=== PATIENT | male | born 1950 | race Caucasian/White ===

== ENCOUNTER 2018-01-31 11:15 | Emergency (ER) | payer BC ==
[2018-01-31 12:20] LABS: KETONE, URINE AUTO RFX TRACE mg/dL (NEGATIVE); LEUKOCYTE ESTERASE UR AUTO RFX NEGATIVE (NEGATIVE); MUCUS, URINE RFX SMALL (NEGATIVE); NITRITE, URINE AUTO RFX NEGATIVE (NEGATIVE); RBC, URINE AUTO RFX 38 /HPF (0-3); SPECIFIC GRAVITY UR AUTO RFX 1.014 (1.002-1.035); SQUAM EPITHELIAL CELL UR AURFX 0 /HPF (0-6); WBC, URINE AUTO RFX 1 /HPF (0-3)
[2018-01-31] MEDS: NS 1,000 ML IV (12:30)
[2018-01-31] MEDS: TAMSULOSIN 0.4 MG CAP PO (12:59)
[2018-01-31] MEDS: MORPHINE 4 MG/ML 1ML VIAL/SYRINGE (J2270) IV (12:59)
[2018-01-31 13:17] LABS: BASO % 0.1 % (0.0-1.0); EOS % 0.2 % (0.0-3.0); HEMATOCRIT 42.5 % (42.0-52.0); HEMOGLOBIN 14.7 g/dl (13.5-17.5); IMMATURE GRANULOCYTE % 0.2 % (0-3.0); LYMPH # 1.3 10^3/uL (1.5-4.5); LYMPH % 13.1 % (24.0-44.0); MEAN CORPUSCULAR HEMOGLOBIN 33.9 pg (27.0-33.0); MEAN CORPUSCULAR HGB CONC 34.6 g/dl (32.0-36.5); MEAN CORPUSCULAR VOLUME 97.9 fl (80.0-96.0); MONO # 0.7 10^3/uL (0.0-0.8); MONO % 7.2 % (0.0-5.0); NEUTROPHILS # 7.8 10^3/uL (1.8-7.7); NEUTROPHILS % 79.2 % (36.0-66.0); PLATELET COUNT, AUTOMATED 144 10^3/uL (150-450); RED BLOOD COUNT 4.34 10^6/uL (4.30-6.10); RED CELL DISTRIBUTION WIDTH 12.6 % (11.5-14.5); WHITE BLOOD COUNT 9.9 10^3/uL (4.0-10.0)
[2018-01-31 13:54] LABS: ALBUMIN 4.2 GM/DL (3.2-5.2); ALBUMIN/GLOBULIN RATIO 1.27 (1.00-1.93); ALKALINE PHOSPHATASE 76 U/L (45-117); ALT/SGPT 25 U/L (12-78); ANION GAP 8 MEQ/L (8-16); AST/SGOT 20 U/L (7-37); BLOOD UREA NITROGEN 17 MG/DL (7-18); CALCIUM LEVEL 8.9 MG/DL (8.8-10.2); CARBON DIOXIDE LEVEL 26 MEQ/L (21-32); CHLORIDE LEVEL 107 MEQ/L (98-107); CREATININE FOR GFR 1.37 MG/DL (0.70-1.30); GLOMERULAR FILTRATION RATE 55.5 (>49); GLUCOSE, FASTING 96 MG/DL (70-100); LIPASE 62 U/L (73-393); POTASSIUM SERUM 4.3 MEQ/L (3.5-5.1); SODIUM LEVEL 141 MEQ/L (136-145); TOTAL PROTEIN 7.5 GM/DL (6.4-8.2)
[2018-01-31] MEDS ORDERED: ISOVUE-370 76% 100ML VIAL (Q9967) As Ordered (14:15)
[2018-01-31] MEDS: KETOROLAC 30 MG/ML VIAL (J1885) IV (14:46)
== END 2018-01-31 15:55 | disposition home or self-care (01) ==
LOC: M ED 11:15
DX: N28.89 Other specified disorders of kidney and ureter (principal); M54.89 Other dorsalgia; F17.200 Nicotine dependence, unspecified, uncomplicated
CPT/HCPCS: J2270

== ENCOUNTER → 2018-01-31 | Outpatient (REF) | payer BC | LOC: M SFHCLERA 10:15 | DX: R10.9 Unspecified abdominal pain (principal); Z53.8 Procedure and treatment not carried out for other reasons ==

== ENCOUNTER → 2018-01-31 | Outpatient (CLI) | payer BC | LOC: M LRY 10:03 | DX: R10.9 Unspecified abdominal pain (principal); K63.89 Other specified diseases of intestine | CPT/HCPCS: 81002 ==

== ENCOUNTER → 2018-02-06 | Outpatient (REF) | payer BC ==
[2018-02-06 14:28] LABS: AMORPHOUS SEDIMENT SMALL (NEGATIVE); APPEARANCE, URINE CLEAR (CLEAR); BACTERIA, URINE AUTO NEGATIVE (NEGATIVE); BILIRUBIN, URINE AUTO NEGATIVE (NEGATIVE); BLOOD, URINE BLOOD 1+ (NEGATIVE); COLOR, URINE YELLOW (YELLOW); GLUCOSE, URINE (UA) AUTO NEGATIVE (NEGATIVE); KETONE, URINE AUTO NEGATIVE (NEGATIVE); LEUKOCYTE ESTERASE, URINE AUTO NEGATIVE (NEGATIVE); MUCUS, URINE SMALL (NEGATIVE); NITRITE, URINE AUTO NEGATIVE (NEGATIVE); PROTEIN, URINE AUTO NEGATIVE (NEGATIVE); RBC, URINE AUTO 5 /HPF (0-3); SQUAMOUS EPITHELIAL CELL UR AU 0 /HPF (0-6); UROBILINOGEN, URINE AUTO 0.2 mg/dL (0.0-2.0); WBC, URINE AUTO 1 /HPF (0-3)
== END ==
LOC: M SMT 13:38
DX: R31.29 Other microscopic hematuria (principal)
CPT/HCPCS: 81001

== ENCOUNTER → 2018-02-26 | Outpatient (CLI) | payer BC ==
[2018-02-26 10:16] LABS: HEMATOCRIT 40.4 % (42.0-52.0); HEMOGLOBIN 14.1 g/dl (13.5-17.5); MEAN CORPUSCULAR HEMOGLOBIN 33.6 pg (27.0-33.0); MEAN CORPUSCULAR HGB CONC 34.9 g/dl (32.0-36.5); MEAN CORPUSCULAR VOLUME 96.2 fl (80.0-96.0); PLATELET COUNT, AUTOMATED 143 10^3/uL (150-450); RED CELL DISTRIBUTION WIDTH 12.1 % (11.5-14.5); WHITE BLOOD COUNT 5.8 10^3/uL (4.0-10.0)
[2018-02-26 10:44] LABS: INR 1.09; PROTHROMBIN TIME 14.2 SECONDS (12.1-14.4)
[2018-02-26 10:45] LABS: PARTIAL THROMBOPLASTIN TIME 27.2 SECONDS (25.4-37.6)
[2018-02-26 10:47] LABS: ANION GAP 6 MEQ/L (8-16); BLOOD UREA NITROGEN 14 MG/DL (7-18); CALCIUM LEVEL 8.7 MG/DL (8.8-10.2); CARBON DIOXIDE LEVEL 28 MEQ/L (21-32); CHLORIDE LEVEL 109 MEQ/L (98-107); CREATININE FOR GFR 0.78 MG/DL (0.70-1.30); GLOMERULAR FILTRATION RATE > 60.0 (>49); GLUCOSE, FASTING 79 MG/DL (70-100); POTASSIUM SERUM 4.2 MEQ/L (3.5-5.1); SODIUM LEVEL 143 MEQ/L (136-145)
== END ==
LOC: M LAB 09:16
DX: N13.30 Unspecified hydronephrosis (principal); R00.1 Bradycardia, unspecified; I45.10 Unspecified right bundle-branch block
CPT/HCPCS: 71046

== ENCOUNTER 2018-02-28 09:33 | Day surgery (SDC) | payer BC ==
[2018-02-28] MEDS: LR 1,000 ML IV ×2 (09:52)
[2018-02-28] MEDS ORDERED: CONRAY-60 60% 50ML VIAL (Q9961) As Ordered ×2 (11:18)
[2018-02-28] MEDS ORDERED: PROPOFOL 200 MG/20 ML VIAL As Ordered ×4 (11:47)
[2018-02-28] MEDS ORDERED: SUCCINYLCHOLINE 100 MG/5 ML SYRINGE (J0330) As Ordered ×2 (11:47)
[2018-02-28] MEDS ORDERED: LIDOCAINE 2% INJ 100 MG/5 ML SDV (FOR ANES.) As Ordered ×2 (11:47)
[2018-02-28] MEDS ORDERED: ONDANSETRON 4MG/2ML VIAL (J2405) As Ordered ×2 (11:47)
[2018-02-28] MEDS ORDERED: dexameTHASONE 4 MG/ML 1ML VIAL (J1100) As Ordered ×2 (11:47)
[2018-02-28] MEDS ORDERED: MIDAZOLAM INJ 2 MG/2 ML VIAL (J2250) As Ordered ×2 (11:47)
[2018-02-28] MEDS ORDERED: ePHEDrine SULFATE 25 MG/5 ML(5MG/ML) SYRINGE As Ordered ×4 (12:08)
[2018-02-28] MEDS ORDERED: fentaNYL 250 MCG/5 ML INJECTION (J3010) As Ordered ×2 (12:24)
[2018-02-28] MEDS ORDERED: PERCOCET 5MG/325MG TAB PO ×2 (12:45)
[2018-02-28] MEDS ORDERED: ACETAMINOPHEN TAB 650MG DOSE (2X325MG) PO ×2 (12:45)
[2018-02-28] MEDS ORDERED: fentaNYL 100 MCG/2 ML INJECTION (J3010) IV ×2 (12:45)
[2018-02-28] MEDS ORDERED: LR 1,000 ML IV ×2 (12:45)
== END 2018-02-28 14:00 | disposition home or self-care (01) ==
LOC: M SDC 09:33
DX: N13.30 Unspecified hydronephrosis (principal); R31.29 Other microscopic hematuria; R10.9 Unspecified abdominal pain; Z72.0 Tobacco use
CPT/HCPCS: 52000

== ENCOUNTER → 2018-09-06 | Outpatient (CLI) | payer BC, MEDICARE ==
[~2018-09-06] MED LIST: FLOM0.4C39 PO; NORCOTAB PO
--- NOTE | 2018-09-06 10:51 | REP ---
Low-dose noncontrast screening chest CT: History: Nicotine dependence. CT findings: Digital preliminary senior infrastructure architect radiograph shows hyperinflation. Findings: There is a 17 mm ground-glass opacity in the left upper lobe with a somewhat linear long axis. This projects on page 17 of 126. There is mild biapical pleuroparenchymal scarring. No solid pulmonary nodule is seen. There is another non-solid 4 mm nodular opacity in the right mid lung zone in the lower lobe on page 56 of 126 of today's exam. There is an area of linear scarring in the right middle lobe on page 66. No other pulmonary nodule is seen. A small pleural plaque is noted at the dome of the diaphragm on the right on page 91. This measures 8 mm. Scan is otherwise unremarkable. Impression: Lung-RADS category II benign findings. Annual screening recommended. Electronically Signed by Wesley Mcgee MD 09/06/2018 02:08 P
== END ==
LOC: M RAD 07:43
PROVIDERS: ATTEND Internal Medicine
DX: F17.210 Nicotine dependence, cigarettes, uncomplicated (principal); R06.09 Other forms of dyspnea

== ENCOUNTER → 2020-01-14 | Outpatient (REF) | payer BC, MEDICARE ==
[~2020-01-14] MED LIST changes: +HYDR-3715 PO; -NORCOTAB PO
== END ==
LOC: M LAB REF 09:34
PROVIDERS: ATTEND Dermatology
DX: D04.61 Carcinoma in situ of skin of right upper limb, including shoulder (principal); C44.529 Squamous cell carcinoma of skin of other part of trunk

== ENCOUNTER → 2020-03-02 | Outpatient (REF) | payer BC, MEDICARE | LOC: M LAB REF 19:06 | PROVIDERS: ATTEND Dermatology | DX: Z85.828 Personal history of other malignant neoplasm of skin (principal) ==

== ENCOUNTER → 2021-01-31 | Outpatient (CLI) | payer MEDICARE ==
--- NOTE | 2021-01-31 10:45 | REP ---
INDICATION: MIXED HYPERLIPIDEMIA. COMPARISON: Comparison CT study September 06, 2018.. TECHNIQUE: Dose reduction was performed utilizing CARE dose with automated adjustment of the kV and MAS according to patient size; iterative reconstruction, automated exposure control, as well as adaptive dose shielding. Helical scanning is acquired and 3 millimeter axial images are re-formatted at lung windows. FINDINGS: Preliminary digital secret code expert radiograph is unremarkable. There is a stable somewhat linear ground-glass opacity in the left upper lobe unchanged from September 06, 2018. Stable bilateral pleural plaques are noted. There are scattered stable subcentimeter pulmonary nodules bilaterally as well. All of these are unchanged from the September 06, 2018 study. No new pulmonary nodule is appreciated. No mass or infiltrate is seen. IMPRESSION: Low lung RADS category 2 findings. Repeat screening exam suggested in 1 year. <Electronically signed by Niraj Mcgee > 01/31/21 0130
== END ==
LOC: M RAD 09:54
PROVIDERS: ATTEND Internal Medicine
DX: F17.219 Nicotine dependence, cigarettes, with unspecified nicotine-induced disorders (principal); J44.9 Chronic obstructive pulmonary disease, unspecified; R91.8 Other nonspecific abnormal finding of lung field

== ENCOUNTER → 2022-02-01 | Outpatient (CLI) | payer MEDICARE | LOC: M RAD 07:57 | PROVIDERS: ATTEND Internal Medicine | DX: J44.9 Chronic obstructive pulmonary disease, unspecified (principal); R91.8 Other nonspecific abnormal finding of lung field; F17.200 Nicotine dependence, unspecified, uncomplicated ==

== ENCOUNTER → 2022-02-13 | Outpatient (CLI) | payer MEDICARE ==
[~2022-02-13] MED LIST changes: +DULO1CAP5 PO; +FLUT1BLS5 INH; +GABA-283 PO; +ROPI0.253 PO
== END ==
LOC: M PLARAD 11:53
PROVIDERS: ATTEND Internal Medicine
DX: D38.1 Neoplasm of uncertain behavior of trachea, bronchus and lung (principal)
CPT/HCPCS: 78815; A9552

== ENCOUNTER → 2022-02-17 | Outpatient (CLI) | payer MEDICARE | LOC: M ONCR 09:05 | PROVIDERS: ATTEND General Practice | DX: C34.31 Malignant neoplasm of lower lobe, right bronchus or lung (principal); F17.210 Nicotine dependence, cigarettes, uncomplicated ==

== ENCOUNTER → 2022-02-27 | Outpatient (CLI) | payer MEDICARE | LOC: M LABSMTC 11:25 | PROVIDERS: ATTEND Anesthesiology | DX: Z01.818 Encounter for other preprocedural examination (principal); Z11.52 Encounter for screening for COVID-19 ==

== ENCOUNTER 2022-02-28 07:08 | Outpatient (RCR) | payer MEDICARE | END 2022-03-17 | LOC: M ONCR 07:08 | PROVIDERS: ATTEND General Practice | DX: C34.31 Malignant neoplasm of lower lobe, right bronchus or lung (principal) ==

== ENCOUNTER 2022-03-01 06:51 | Day surgery (SDC) | payer MEDICARE ==
[~2022-03-01] VITALS: Ht 177.8 cm; Wt 78.5 kg
[2022-03-01] MEDS ORDERED: LR 1,000 ML IV SCH ×2 (07:50→10:05)
[2022-03-01] MEDS ORDERED: CETACAINE SPRAY 5GM As Ordered ONE (08:36)
[2022-03-01] MEDS ORDERED: THROMBIN SOLN 5,000 UNITS VIAL As Ordered ONE (08:36)
[2022-03-01] MEDS ORDERED: EPINEPHrine 1MG/10ML SYRINGE 1.5IN As Ordered ONE (08:37)
[2022-03-01] MEDS ORDERED: LIDOCAINE 2% MDV 20ML VIAL As Ordered ONE (08:50)
[2022-03-01] MEDS ORDERED: ALBUTEROL SULFATE 2.5 MG/0.5 ML INH NEB SOLN As Ordered ONE (08:50)
[2022-03-01] MEDS ORDERED: ALBUTEROL SULFATE 2.5 MG/0.5 ML INH NEB SOLN INH ONE (09:20)
[2022-03-01] MEDS ORDERED: LIDOCAINE 2% MDV 20ML VIAL XX ONE (09:20)
[2022-03-01] MEDS ORDERED: LIDOCAINE 2% 100MG/5ML SDV (FOR ANES.) As Ordered ONE (09:30)
[2022-03-01] MEDS ORDERED: dexameTHASONE 4 MG/ML 1ML VIAL (J1100 PER 1MG) As Ordered ONE (09:30)
[2022-03-01] MEDS ORDERED: SUGAMMADEX SODIUM 500 MG/5 ML VIAL (BRIDION) As Ordered ONE (09:30)
[2022-03-01] MEDS ORDERED: MIDAZOLAM INJ 2MG/2ML VIAL (J2250 PER 1MG) As Ordered ONE (09:30)
[2022-03-01] MEDS ORDERED: fentaNYL 100 MCG/2 ML INJECTION As Ordered ONE (09:30)
[2022-03-01] MEDS ORDERED: ROCURONIUM BROMIDE 50 MG/5 ML VIAL As Ordered ONE (09:30)
[2022-03-01] MEDS ORDERED: ONDANSETRON 4MG 2ML VIAL As Ordered ONE (09:30)
[2022-03-01] MEDS ORDERED: ACETAMINOPHEN 1000MG 100ML IV BTL (OFIRMEV) (J0131 PER 10MG) As Ordered ONE (09:30)
[2022-03-01] MEDS ORDERED: MORPHINE 2 MG/ML 1ML VIAL IV PRN (10:05)
[2022-03-01] MEDS ORDERED: ONDANSETRON 4MG 2ML VIAL IV PRN (10:05)
[2022-03-01] MEDS ORDERED: oxyCODONE 5MG TAB PO PRN (10:05)
[2022-03-01] MEDS ORDERED: fentaNYL 100 MCG/2 ML INJECTION IV PRN (10:05)
[2022-03-01 11:00] VITALS: BP 130/61
== END 2022-03-01 11:19 | disposition home or self-care (01) ==
LOC: M SDC 06:51
PROVIDERS: ATTEND Internal Medicine Critical Care Medicine
DX: C77.1 Secondary and unspecified malignant neoplasm of intrathoracic lymph nodes (principal); R59.0 Localized enlarged lymph nodes; J44.9 Chronic obstructive pulmonary disease, unspecified; G62.9 Polyneuropathy, unspecified; G25.81 Restless legs syndrome; F17.218 Nicotine dependence, cigarettes, with other nicotine-induced disorders; Z79.899 Other long term (current) drug therapy
CPT/HCPCS: 31628; 31629; 31654; 71045; 76000; 88173; 88305; J0131; J1100; J2250; J2405; J3010

== ENCOUNTER → 2022-03-10 | Outpatient (CLI) | payer MEDICARE ==
[~2022-03-10] MED LIST changes: +PROHANCE 279.3MG/ML 15ML VIAL As Ordered ONE
== END ==
LOC: M RAD 14:46
PROVIDERS: ATTEND General Practice
DX: C34.31 Malignant neoplasm of lower lobe, right bronchus or lung (principal); G31.9 Degenerative disease of nervous system, unspecified; J34.89 Other specified disorders of nose and nasal sinuses
CPT/HCPCS: 70553; A9576

== ENCOUNTER → 2022-03-26 | Outpatient (CLI) | payer MEDICARE ==
[~2022-03-26] MED LIST changes: +ONDA-84 PO; +PROC10TA5 PO; -PROHANCE 279.3MG/ML 15ML VIAL As Ordered ONE
== END ==
LOC: M LABSMTC 11:24
PROVIDERS: ATTEND Anesthesiology
DX: Z01.812 Encounter for preprocedural laboratory examination (principal); Z20.822 Contact with and (suspected) exposure to COVID-19

== ENCOUNTER → 2022-03-29 | Outpatient (CLI) | payer MEDICARE ==
[~2022-03-29] MED LIST changes: +LIDOCAINE 1% MDV 20ML VIAL As Ordered ONE; +MIDAZOLAM INJ 2MG/2ML VIAL (J2250 PER 1MG) As Ordered ONE; +NS 1,000 ML IV SCH; +ceFAZolin 2 GM/D5W 50 ML IV BAG (J0690 PER 500MG) As Ordered ONE; +ceFAZolin SOD 2 GM in IV 1 EA IV ONE; +diphenhydrAMINE 50MG/ML VIAL (J1200) As Ordered ONE; +fentaNYL 100 MCG/2 ML INJECTION As Ordered ONE
[2022-03-29 15:30] VITALS: BP 129/80
== END ==
LOC: M IRPRO 09:33
PROVIDERS: ATTEND Internal Medicine Medical Oncology
DX: C34.90 Malignant neoplasm of unspecified part of unspecified bronchus or lung (principal)
CPT/HCPCS: 36561; 99152; 99153; C1769; C1788; C1894; J0690; J1200; J1642; J1644; J2250; J3010

== ENCOUNTER 2022-04-17 09:33 | Outpatient (RCR) | payer MEDICARE ==
[~2022-04-17 09:33] MED LIST changes: -LIDOCAINE 1% MDV 20ML VIAL As Ordered ONE; -MIDAZOLAM INJ 2MG/2ML VIAL (J2250 PER 1MG) As Ordered ONE; -NS 1,000 ML IV SCH; -ceFAZolin 2 GM/D5W 50 ML IV BAG (J0690 PER 500MG) As Ordered ONE; -ceFAZolin SOD 2 GM in IV 1 EA IV ONE; -diphenhydrAMINE 50MG/ML VIAL (J1200) As Ordered ONE; -fentaNYL 100 MCG/2 ML INJECTION As Ordered ONE
== END 2022-04-17 23:59 | disposition home or self-care (01) ==
LOC: M ONCR 09:33
PROVIDERS: ATTEND General Practice
DX: C34.31 Malignant neoplasm of lower lobe, right bronchus or lung (principal)

== ENCOUNTER → 2022-04-25 | Outpatient (POV) | payer MEDICARE ==
[~2022-04-25] VITALS: Ht 177.8 cm; Wt 77.2 kg
[2022-04-25 08:45] VITALS: BP 123/81
== END ==
LOC: M IRPOV 08:38
PROVIDERS: ATTEND Radiology Diagnostic Radiology
DX: Z45.2 Encounter for adjustment and management of vascular access device (principal)

== ENCOUNTER 2022-05-08 09:31 | Outpatient (RCR) | payer MEDICARE | END 2022-05-17 | LOC: M ONCR 09:31 | PROVIDERS: ATTEND General Practice | DX: C34.31 Malignant neoplasm of lower lobe, right bronchus or lung (principal) ==

== ENCOUNTER → 2022-05-23 | Outpatient (CLI) | payer MEDICARE ==
[~2022-05-23] MED LIST changes: +AZIT-12 PO; +BENZ200C70 PO; +METH4TAB8 PO; +PRED5PAK PO
== END ==
LOC: M RAD 11:54
PROVIDERS: ATTEND Nurse Practitioner
DX: C34.90 Malignant neoplasm of unspecified part of unspecified bronchus or lung (principal)

== ENCOUNTER → 2022-05-31 | Outpatient (CLI) | payer MEDICARE ==
[~2022-05-31] MED LIST changes: +GUAISYP4 PO; +HYDR5SYP11 PO
== END ==
LOC: M ONCR 12:53
PROVIDERS: ATTEND General Practice
DX: C34.31 Malignant neoplasm of lower lobe, right bronchus or lung (principal); Z92.21 Personal history of antineoplastic chemotherapy; Z92.3 Personal history of irradiation

== ENCOUNTER → 2022-06-05 | Outpatient (CLI) | payer MEDICARE ==
[~2022-06-05] MED LIST changes: +ISOVUE-370 76% 100ML VIAL As Ordered ONE
== END ==
LOC: M RAD 15:14
PROVIDERS: ATTEND Nurse Practitioner
DX: C34.90 Malignant neoplasm of unspecified part of unspecified bronchus or lung (principal)
CPT/HCPCS: 71260; Q9967

== ENCOUNTER → 2022-09-18 | Outpatient (CLI) | payer MEDICARE | LOC: M RAD 11:02 | PROVIDERS: ATTEND Nurse Practitioner | DX: C34.90 Malignant neoplasm of unspecified part of unspecified bronchus or lung (principal) | CPT/HCPCS: 71260; Q9967 ==

== ENCOUNTER → 2022-11-01 | Outpatient (CLI) | payer MEDICARE ==
[~2022-11-01] MED LIST changes: -ISOVUE-370 76% 100ML VIAL As Ordered ONE
== END ==
LOC: M ONCR 12:49
PROVIDERS: ATTEND Specialist
DX: C34.2 Malignant neoplasm of middle lobe, bronchus or lung (principal); Z92.3 Personal history of irradiation; Z92.21 Personal history of antineoplastic chemotherapy; Z79.620 Long term (current) use of immunosuppressive biologic; Z87.891 Personal history of nicotine dependence; Z79.51 Long term (current) use of inhaled steroids; Z79.899 Other long term (current) drug therapy

== ENCOUNTER → 2022-12-25 | Outpatient (CLI) | payer MEDICARE ==
[~2022-12-25] MED LIST changes: +GASTROGRAFIN SOLUTION 30ML ONE; +ISOVUE-370 76% 100ML VIAL ONE; -ROPI0.253 PO; +ROPI5TAB19 PO
== END ==
LOC: M PLAIMG 11:25
PROVIDERS: ATTEND Internal Medicine Medical Oncology
DX: C34.91 Malignant neoplasm of unspecified part of right bronchus or lung (principal); K57.30 Diverticulosis of large intestine without perforation or abscess without bleeding
CPT/HCPCS: 71260; 74177; Q9963; Q9967

== ENCOUNTER → 2023-03-26 | Outpatient (CLI) | payer MEDICARE ==
[~2023-03-26] MED LIST changes: -GABA-283 PO; +GABA-284 PO; +GASTROGRAFIN SOLUTION 30ML As Ordered ONE; -GASTROGRAFIN SOLUTION 30ML ONE; +ISOVUE-370 76% 100ML VIAL As Ordered ONE; -ISOVUE-370 76% 100ML VIAL ONE; +PREG25CA3
== END ==
LOC: M RAD 09:04
PROVIDERS: ATTEND Internal Medicine Medical Oncology
DX: C34.90 Malignant neoplasm of unspecified part of unspecified bronchus or lung (principal)
CPT/HCPCS: 71260; 74177; Q9963; Q9967

== ENCOUNTER → 2023-07-02 | Outpatient (CLI) | payer MEDICARE ==
[~2023-07-02] MED LIST changes: -GASTROGRAFIN SOLUTION 30ML As Ordered ONE; +HYDR1SYP7 PO; -HYDR5SYP11 PO
== END ==
LOC: M RAD 10:56
PROVIDERS: ATTEND Nurse Practitioner
DX: Z08 Encounter for follow-up examination after completed treatment for malignant neoplasm (principal); Z85.118 Personal history of other malignant neoplasm of bronchus and lung
CPT/HCPCS: 71260; Q9967

== ENCOUNTER → 2023-10-26 | Outpatient (CLI) | payer MEDICARE | LOC: M RAD 08:13 | PROVIDERS: ATTEND Nurse Practitioner | DX: C34.11 Malignant neoplasm of upper lobe, right bronchus or lung (principal); J47.9 Bronchiectasis, uncomplicated; J43.2 Centrilobular emphysema; R91.8 Other nonspecific abnormal finding of lung field | CPT/HCPCS: 71260; Q9967 ==

== ENCOUNTER → 2024-03-25 | Outpatient (CLI) | payer MEDICARE ==
[~2024-03-25] MED LIST changes: -ISOVUE-370 76% 100ML VIAL As Ordered ONE; +LIDOCAINE 1% MDV 20ML VIAL As Ordered ONE; +TREL1AER PO
[2024-03-25 12:21] VITALS: TEMP 98
[2024-03-25 12:44] LABS: EOS % 0.4 % (0.0-3.0); HEMATOCRIT 30.2 % (42.0-52.0); HEMOGLOBIN 10.1 g/dl (13.5-17.5); LYMPH # 0.5 10^3/uL (1.5-5.0); MEAN CORPUSCULAR HGB CONC 33.4 g/dl (32.0-36.5); MEAN CORPUSCULAR VOLUME 95.6 fl (80.0-96.0); MONO # 0.2 10^3/uL (0.0-0.8); MONO % 8.7 % (2.0-8.0); NEUTROPHILS # 1.6 10^3/uL (1.5-8.5); RED BLOOD COUNT 3.16 10^6/uL (4.30-6.10); WHITE BLOOD COUNT 2.3 10^3/uL (4.0-10.0)
[2024-03-25 13:06] VITALS: BP 115/71; O2SAT 100
[2024-03-25 13:33] LABS: PLATELET COUNT, AUTOMATED 39 10^3/uL (150-450)
== END ==
LOC: M IRPRO 12:13
PROVIDERS: ATTEND Dietitian, Registered
DX: C34.90 Malignant neoplasm of unspecified part of unspecified bronchus or lung (principal); D46.9 Myelodysplastic syndrome, unspecified

== ENCOUNTER → 2024-04-21 | Outpatient (CLI) | payer MEDICARE ==
[~2024-04-21] MED LIST changes: +GASTROGRAFIN SOLUTION 30ML As Ordered ONE; +ISOVUE-370 76% 100ML VIAL As Ordered ONE; -LIDOCAINE 1% MDV 20ML VIAL As Ordered ONE
== END ==
LOC: M RAD 13:21
PROVIDERS: ATTEND Internal Medicine Medical Oncology
DX: C34.90 Malignant neoplasm of unspecified part of unspecified bronchus or lung (principal); J43.9 Emphysema, unspecified
CPT/HCPCS: 71260; 74177; Q9963; Q9967

== ENCOUNTER → 2024-04-29 | Outpatient (CLI) | payer MEDICARE ==
[~2024-04-29] MED LIST changes: +CIPR-249 PO; -GASTROGRAFIN SOLUTION 30ML As Ordered ONE; -ISOVUE-370 76% 100ML VIAL As Ordered ONE; +METH-1164 PO
[2024-04-29 17:44] LABS: ALBUMIN 3.3 G/DL (3.2-5.2); ALKALINE PHOSPHATASE 90 U/L (40-129); ALT/SGPT 11 U/L (7.0-40); AST/SGOT 13 U/L (<34); BILIRUBIN,TOTAL 0.4 MG/DL (0.3-1.2); BLOOD UREA NITROGEN 19 MG/DL (9-23); CALCIUM LEVEL 8.5 MG/DL (8.3-10.6); CARBON DIOXIDE LEVEL 26 MMOL/L (20-31); CHLORIDE LEVEL 105 MMOL/L (98-107); CREATININE FOR GFR 0.69 MG/DL (0.70-1.30); GLOMERULAR FILTRATION RATE > 60.0 (>42); GLUCOSE, FASTING 95 MG/DL (74-106); SODIUM LEVEL 138 MMOL/L (136-145); TOTAL PROTEIN 7.4 G/DL (5.7-8.2)
[2024-04-29 17:58] LABS: BASO % 0.3 % (0.0-1.0); HEMATOCRIT 23.9 % (42.0-52.0); HEMOGLOBIN 7.9 g/dl (13.5-17.5); LYMPH # 0.5 10^3/uL (1.5-5.0); LYMPH % 16.7 % (24.0-44.0); MEAN CORPUSCULAR HEMOGLOBIN 32.6 pg (27.0-33.0); MEAN CORPUSCULAR HGB CONC 33.1 g/dl (32.0-36.5); MEAN CORPUSCULAR VOLUME 98.8 fl (80.0-96.0); MONO # 0.2 10^3/uL (0.0-0.8); MONO % 6.8 % (2.0-8.0); NEUTROPHILS # 2.2 10^3/uL (1.5-8.5); NEUTROPHILS % 74.5 % (36.0-66.0); RED BLOOD COUNT 2.42 10^6/uL (4.30-6.10); WHITE BLOOD COUNT 2.9 10^3/uL (4.0-10.0)
[2024-04-29 18:49] LABS: PLATELET COUNT, AUTOMATED 26 10^3/uL (150-450)
== END ==
LOC: M WUC 13:50
PROVIDERS: ATTEND Internal Medicine
DX: M54.9 Dorsalgia, unspecified (principal)

== ENCOUNTER 2024-05-01 06:41 | Emergency (ER) | payer MEDICARE ==
[~2024-05-01] VITALS: Ht 177.8 cm; Wt 77.0 kg
[~2024-05-01 06:41] MED LIST changes: -CIPR-249 PO; -METH-1164 PO; -PREG25CA3; +PREG25CA3 PO
[2024-05-01 07:52] LABS: VENOUS BASE EXCESS 0.9 (-2.0-2.0); VENOUS HCO3 26.1 MMOL/L (23.0-27.0); VENOUS O2 SATURATION 71.3 % (60.0-80.0); VENOUS PARTIAL PRESSURE CO2 44.5 mmHg (38.0-50.0); VENOUS PARTIAL PRESSURE O2 39.9 mmHg (30.0-50.0); VENOUS PH 7.386 UNITS (7.330-7.430); VENOUS STANDARD HCO3 24.9 MMOL/L; VENOUS TOTAL CO2 27.5 MMOL/L (24.0-28.0)
[2024-05-01 07:59] LABS: HEMATOCRIT 22.4 % (42.0-52.0); HEMOGLOBIN 7.4 g/dl (13.5-17.5); LYMPH # 0.4 10^3/uL (1.5-5.0); LYMPH % 12.5 % (24.0-44.0); MONO # 0.2 10^3/uL (0.0-0.8); MONO % 6.3 % (2.0-8.0); NEUTROPHILS # 2.5 10^3/uL (1.5-8.5); NEUTROPHILS % 79.6 % (36.0-66.0); RED BLOOD COUNT 2.31 10^6/uL (4.30-6.10); WHITE BLOOD COUNT 3.2 10^3/uL (4.0-10.0)
[2024-05-01 08:13] LABS: PLATELET COUNT, AUTOMATED 24 10^3/uL (150-450)
[2024-05-01 08:29] LABS: BLOOD UREA NITROGEN 19 MG/DL (9-23); CALCIUM LEVEL 8.6 MG/DL (8.3-10.6); CARBON DIOXIDE LEVEL 26 MMOL/L (20-31); CHLORIDE LEVEL 103 MMOL/L (98-107); CREATININE FOR GFR 0.86 MG/DL (0.70-1.30); GLOMERULAR FILTRATION RATE > 60.0 (>42); GLUCOSE, FASTING 109 MG/DL (74-106); POTASSIUM SERUM 4.7 MMOL/L (3.5-5.1); SODIUM LEVEL 136 MMOL/L (136-145)
[2024-05-01] MEDS: ACETAMINOPHEN 500 MG TAB PO ONE (08:43)
[2024-05-01] MEDS: MORPHINE 4 MG/ML 1ML VIAL IV ONE (08:45)
[2024-05-01] MEDS: ONDANSETRON 4MG 2ML VIAL IV ONE (08:45)
[2024-05-01] MEDS: NS 1,000 ML IV ONE (08:48)
[2024-05-01 09:15] LABS: INR 1.19; PARTIAL THROMBOPLASTIN TIME 34.5 SECONDS (24.8-34.2); PROTHROMBIN TIME 15.4 SECONDS (12.5-14.5)
[2024-05-01 09:30] LABS: CK-MB VALUE MASS < 1.0 NG/ML (<3.6)
[2024-05-01 09:32] LABS: CPK CREATINE PHOSPHOKINASE 52 U/L (46-171); MB/CK RELATIVE INDEX 1.92 (< OR =4)
[2024-05-01] MEDS ORDERED: ISOVUE-370 76% 100ML VIAL As Ordered ONE (09:37)
[2024-05-01 09:38] LABS: PROCALCITONIN 0.35 ng/ml
[2024-05-01 09:42] LABS: ALBUMIN 3.1 G/DL (3.2-5.2); ALKALINE PHOSPHATASE 96 U/L (40-129); ALT/SGPT 14 U/L (7.0-40); AST/SGOT 17 U/L (<34); BILIRUBIN,DIRECT 0.1 MG/DL (<0.4); BILIRUBIN,TOTAL 0.5 MG/DL (0.3-1.2); TOTAL PROTEIN 6.8 G/DL (5.7-8.2)
[2024-05-01 10:57] VITALS: TEMP 98.1
[2024-05-01 11:30] VITALS: BP 118/64
[2024-05-01] MEDS ORDERED: METH-1164 PO (11:44)
[2024-05-01 11:45] VITALS: O2SAT 93
[2024-05-01] MEDS ORDERED: CIPR-249 PO (12:00)
== END 2024-05-01 12:04 | disposition home or self-care (01) ==
LOC: M ED 06:41
DX: R50.9 Fever, unspecified (principal); M51.360 Other intervertebral disc degeneration, lumbar region with discogenic back pain only; D64.9 Anemia, unspecified; I27.20 Pulmonary hypertension, unspecified; F17.210 Nicotine dependence, cigarettes, uncomplicated; Z85.118 Personal history of other malignant neoplasm of bronchus and lung; Z79.2 Long term (current) use of antibiotics; Z79.899 Other long term (current) drug therapy
CPT/HCPCS: 71045; 72131; 74176; 80048; 80076; 81001; 82550; 82553; 82803; 83605; 84145; 84484; 85025; 85049; 85055; 85610; 85730; 86140; 86850; 86900; 86901; 87040; 87486; 87581; 87633; 87798; 93005; 93041; 94760; 96361; 96374; 99285; J2405

== ENCOUNTER 2024-05-03 15:12 | Inpatient (IN) | payer MEDICARE ==
[~2024-05-03] VITALS: Ht 177.8 cm; Wt 77.6 kg
[~2024-05-03 15:12] MED LIST changes: +CIPR-249 PO; +METH-1164 PO
[2024-05-03] MEDS: MORPHINE 4 MG/ML 1ML VIAL IV ONE (15:51)
[2024-05-03 16:03] LABS: BASO % 0.4 % (0.0-1.0); HEMATOCRIT 25.3 % (42.0-52.0); HEMOGLOBIN 8.4 g/dl (13.5-17.5); LYMPH # 0.5 10^3/uL (1.5-5.0); LYMPH % 17.7 % (24.0-44.0); MEAN CORPUSCULAR HEMOGLOBIN 31.6 pg (27.0-33.0); MEAN CORPUSCULAR HGB CONC 33.2 g/dl (32.0-36.5); MEAN CORPUSCULAR VOLUME 95.1 fl (80.0-96.0); MONO # 0.2 10^3/uL (0.0-0.8); MONO % 5.7 % (2.0-8.0); NEUTROPHILS # 2.1 10^3/uL (1.5-8.5); NEUTROPHILS % 74.4 % (36.0-66.0); RED BLOOD COUNT 2.66 10^6/uL (4.30-6.10); WHITE BLOOD COUNT 2.8 10^3/uL (4.0-10.0)
[2024-05-03] MEDS ORDERED: PROHANCE 279.3MG/ML 15ML VIAL As Ordered ONE (16:04)
[2024-05-03 16:05] LABS: PLATELET COUNT, AUTOMATED 21 10^3/uL (150-450)
[2024-05-03 16:26] LABS: BLOOD UREA NITROGEN 17 MG/DL (9-23); CALCIUM LEVEL 8.5 MG/DL (8.3-10.6); CARBON DIOXIDE LEVEL 25 MMOL/L (20-31); CHLORIDE LEVEL 105 MMOL/L (98-107); CREATININE FOR GFR 0.74 MG/DL (0.70-1.30); GLOMERULAR FILTRATION RATE > 60.0 (>42); GLUCOSE, FASTING 104 MG/DL (74-106); SODIUM LEVEL 138 MMOL/L (136-145)
[2024-05-03] MEDS: fentaNYL 100 MCG/2 ML INJECTION IV ONE (16:35)
[2024-05-03] MEDS: LORazepam 2 MG/ML 1ML VIAL IV STA (18:13)
[2024-05-03] MEDS: HYDROMORPHONE HCL 0.5 MG/ 0.5 ML SYRINGE IV ONE (19:09)
[2024-05-03] MEDS: NS 2,250 ML in IV 1 EA IV ONE (20:04)
[2024-05-03] MEDS: PIPERACILLIN/TAZOBACTAM SOD 4.5 GM in DEXTROSE 5% (D5W) ADV/MINI-BAG 50 ML IV ONE (20:05)
[2024-05-03] MEDS: LIDOCAINE 2% 5ML JELLY UROJET TOP ONE (21:20)
[2024-05-03] MEDS: VANCOMYCIN/WATER FOR INJ (PEG) 1,500 MG in IV 1 EA IV ONE (21:22)
[2024-05-03] MEDS: ACETAMINOPHEN 500 MG TAB PO ONE (21:26)
[2024-05-03] MEDS ORDERED: HYDROmorphone HCL 2MG/ML 1ML VIAL IV PRN (23:10)
[2024-05-03] MEDS ORDERED: CIPR500T39 PO (23:17)
[2024-05-03] MEDS ORDERED: FLUT1BLS8 INH (23:17)
[2024-05-03] MEDS ORDERED: METH-1164 PO (23:17)
[2024-05-03] MEDS ORDERED: TRAM50TA2 PO (23:17)
[2024-05-03] MEDS ORDERED: OXYC-517 PO (23:17)
[2024-05-03] MEDS ORDERED: HOME MED LIST COMPLETE! XX SCH (23:20)
[2024-05-04] VITALS (18 sets, daily range): BP systolic 88–144; BP diastolic 52–79; TEMP 97.4–99.9; O2SAT 94–98
[2024-05-04 00:44] LABS: ERYTHROCYTE SEDIMENTATION RATE 60 mm/hr (0-20)
[2024-05-04] MEDS: ONDANSETRON 4MG 2ML VIAL IV PRN (01:31)
[2024-05-04] MEDS: HYDROMORPHONE HCL 0.5 MG/ 0.5 ML SYRINGE IV PRN (03:35)
[2024-05-04] MEDS: PIPERACILLIN/TAZOBACTAM SOD 4.5 GM in DEXTROSE 5% (D5W) ADV/MINI-BAG 50 ML IV SCH (03:35)
[2024-05-04 05:56] LABS: ALBUMIN 2.4 G/DL (3.2-5.2); ALKALINE PHOSPHATASE 75 U/L (40-129); ALT/SGPT < 9 U/L (7.0-40); AST/SGOT 13 U/L (<34); BILIRUBIN,DIRECT 0.2 MG/DL (<0.4); BILIRUBIN,TOTAL 0.5 MG/DL (0.3-1.2); BLOOD UREA NITROGEN 13 MG/DL (9-23); CALCIUM LEVEL 7.9 MG/DL (8.3-10.6); CARBON DIOXIDE LEVEL 24 MMOL/L (20-31); CHLORIDE LEVEL 110 MMOL/L (98-107); CREATININE FOR GFR 0.66 MG/DL (0.70-1.30); GLOMERULAR FILTRATION RATE > 60.0 (>42); GLUCOSE, FASTING 118 MG/DL (74-106); LDH LACTATE DEHYDROGENASE 190 U/L (120-246); PHOSPHORUS LEVEL 3.7 MG/DL (2.4-5.1); POTASSIUM SERUM 4.1 MMOL/L (3.5-5.1); SODIUM LEVEL 139 MMOL/L (136-145); TOTAL PROTEIN 5.7 G/DL (5.7-8.2); URIC ACID 2.9 MG/DL (3.7-9.2)
[2024-05-04] MEDS: ADVAIR HFA 230/21MCG INHALER INH SCH (08:38)
[2024-05-04] MEDS: TIOTROPIUM INHALER/CAPSULE (SPIRIVA) INH SCH (08:38)
[2024-05-04] MEDS: GABAPENTIN 100 MG CAP PO SCH (09:07)
[2024-05-04] MEDS: DULoxetine 30MG CAPSULE (CYMBALTA) PO SCH (09:07)
[2024-05-04 10:33] LABS: LYMPH # 0.3 10^3/uL (1.5-5.0); LYMPH % 17.2 % (24.0-44.0); MEAN CORPUSCULAR HEMOGLOBIN 31.4 pg (27.0-33.0); MEAN CORPUSCULAR HGB CONC 32.8 g/dl (32.0-36.5); MEAN CORPUSCULAR VOLUME 95.7 fl (80.0-96.0); MONO # 0.1 10^3/uL (0.0-0.8); MONO % 5.9 % (2.0-8.0); NEUTROPHILS # 1.3 10^3/uL (1.5-8.5); NEUTROPHILS % 75.7 % (36.0-66.0); WHITE BLOOD COUNT 1.7 10^3/uL (4.0-10.0)
[2024-05-04 10:36] LABS: HEMATOCRIT 20.1 % (42.0-52.0)
[2024-05-04 10:37] LABS: HEMOGLOBIN 6.6 g/dl (13.5-17.5); PLATELET COUNT, AUTOMATED 14 10^3/uL (150-450)
[2024-05-04] MEDS: LORazepam 2 MG/ML 1ML VIAL IV ONE (10:52)
[2024-05-04 11:51] LABS: IMMUNOGLOBULIN A 268.1 MG/DL (40-350); IMMUNOGLOBULIN G 952 MG/DL (650-1600)
[2024-05-04 12:35] LABS: INR 1.29; PARTIAL THROMBOPLASTIN TIME 39.3 SECONDS (24.8-34.2); PROTHROMBIN TIME 16.4 SECONDS (12.5-14.5)
[2024-05-04] MEDS: ACETAMINOPHEN *IV* 1,000 MG in IV 1 EA IV ONE (15:20)
[2024-05-04] MEDS ORDERED: VANCOMYCIN/WATER FOR INJ 750 MG in IV 1 EA IV SCH (15:25)
[2024-05-04] MEDS: FILGRASTIM 480 MCG/0.8 ML SYRINGE **SC ADMINISTRATION ONLY SC SCH (16:03)
[2024-05-04] MEDS: VANCOMYCIN 1,500 MG/300 ML IV BAG *LOAD IV ONE (17:21)
[2024-05-04] MEDS: rOPINIRole 0.25 MG TAB(REQUIP) PO SCH (17:21)
[2024-05-04] MEDS: LORazepam 2 MG/ML 1ML VIAL IV PRN (18:53)
[2024-05-04] MEDS: LORazepam 2 MG/ML 1ML VIAL IV STA (20:54)
[2024-05-05] VITALS (10 sets, daily range): BP systolic 110–128; BP diastolic 56–73; TEMP 98.1–102.8; O2SAT 93–98
[2024-05-05] MEDS: ACETAMINOPHEN *IV* 1,000 MG in IV 1 EA IV ONE ×2 (02:00→11:36)
[2024-05-05] MEDS: VANCOMYCIN 1,250 MG/250 ML IV BAG IV SCH (02:16)
[2024-05-05] MEDS: HYDROMORPHONE HCL 0.5 MG/ 0.5 ML SYRINGE IV ONE (08:11)
[2024-05-05 08:14] LABS: HEMATOCRIT 24.8 % (42.0-52.0); HEMOGLOBIN 8.5 g/dl (13.5-17.5); MEAN CORPUSCULAR HEMOGLOBIN 31.6 pg (27.0-33.0); MEAN CORPUSCULAR HGB CONC 34.3 g/dl (32.0-36.5); MEAN CORPUSCULAR VOLUME 92.2 fl (80.0-96.0); RED BLOOD COUNT 2.69 10^6/uL (4.30-6.10); WHITE BLOOD COUNT 5.1 10^3/uL (4.0-10.0)
[2024-05-05 08:16] LABS: PLATELET COUNT, AUTOMATED 12 10^3/uL (150-450)
[2024-05-05 08:47] LABS: ALBUMIN 2.4 G/DL (3.2-5.2); ALKALINE PHOSPHATASE 84 U/L (40-129); ALT/SGPT 10 U/L (7.0-40); AST/SGOT 14 U/L (<34); BILIRUBIN,TOTAL 0.8 MG/DL (0.3-1.2); BLOOD UREA NITROGEN 11 MG/DL (9-23); CALCIUM LEVEL 8.1 MG/DL (8.3-10.6); CARBON DIOXIDE LEVEL 25 MMOL/L (20-31); CHLORIDE LEVEL 108 MMOL/L (98-107); CREATININE FOR GFR 0.67 MG/DL (0.70-1.30); GLOMERULAR FILTRATION RATE > 60.0 (>42); GLUCOSE, FASTING 100 MG/DL (74-106); MAGNESIUM LEVEL 1.9 MG/DL (1.8-2.4); POTASSIUM SERUM 4.1 MMOL/L (3.5-5.1); SODIUM LEVEL 139 MMOL/L (136-145); TOTAL PROTEIN 5.9 G/DL (5.7-8.2)
[2024-05-05 08:55] LABS: ANISOCYTOSIS 1+; DOHLE BODIES 1+; LYMPHOCYTES 7 % (16-44); MONOCYTES 3 % (0-5); NEUTROPHILS 81 % (28-66); OVALOCYTES 1+; PLATELET ESTIMATE DECREASED (NORMAL)
[2024-05-05 08:56] LABS: HELMET CELLS 1+
[2024-05-05 09:20] LABS: FREE T4 1.04 NG/DL (0.89-1.76)
[2024-05-05 09:21] LABS: THYROID STIMULATING HORMONE 2.065 uIU/ML (0.55-4.78)
[2024-05-05] MEDS: LIDOCAINE 5% (LIDODERM) PATCH TD SCH (11:33)
[2024-05-05 16:04] LABS: BASO % 0.3 % (0.0-1.0); HEMATOCRIT 24.3 % (42.0-52.0); HEMOGLOBIN 8.1 g/dl (13.5-17.5); LYMPH # 0.4 10^3/uL (1.5-5.0); LYMPH % 6.2 % (24.0-44.0); MEAN CORPUSCULAR HEMOGLOBIN 30.7 pg (27.0-33.0); MEAN CORPUSCULAR HGB CONC 33.3 g/dl (32.0-36.5); MONO # 0.1 10^3/uL (0.0-0.8); MONO % 2.1 % (2.0-8.0); NEUTROPHILS # 5.5 10^3/uL (1.5-8.5); NEUTROPHILS % 87.3 % (36.0-66.0); RED BLOOD COUNT 2.64 10^6/uL (4.30-6.10); WHITE BLOOD COUNT 6.3 10^3/uL (4.0-10.0)
[2024-05-05 16:33] LABS: PLATELET COUNT, AUTOMATED 15 10^3/uL (150-450)
[2024-05-05] MEDS: MOM 30ML SUSPENSION UDC PO PRN (16:57)
[2024-05-05] MEDS: dexAMETHasone 20MG/5ML VIAL IV SCH (18:20)
[2024-05-05] MEDS: LORazepam 2 MG/ML 1ML VIAL IV PRN (18:21)
[2024-05-05] MEDS: HYDROMORPHONE HCL 0.5 MG/ 0.5 ML SYRINGE IV PRN (18:23)
[2024-05-05] MEDS: cefTRIAXone SOD 2 GM in DEXTROSE 5% (D5W) ADV/MINI-BAG 50 ML IV SCH (21:24)
[2024-05-05] MEDS: DOXYCYCLINE HYCLATE 100 MG in DEXTROSE 5% (D5W) MINI-BAG PLU 100 ML IV SCH (23:10)
[2024-05-06] VITALS (18 sets, daily range): BP systolic 119–157; BP diastolic 21–90; TEMP 97–99.1; O2SAT 93–98
[2024-05-06 08:01] LABS: BASO % 0.2 % (0.0-1.0); HEMATOCRIT 26.4 % (42.0-52.0); HEMOGLOBIN 9.1 g/dl (13.5-17.5); LYMPH # 0.4 10^3/uL (1.5-5.0); LYMPH % 6.8 % (24.0-44.0); MEAN CORPUSCULAR HEMOGLOBIN 31.2 pg (27.0-33.0); MEAN CORPUSCULAR HGB CONC 34.5 g/dl (32.0-36.5); MEAN CORPUSCULAR VOLUME 90.4 fl (80.0-96.0); MONO # 0.1 10^3/uL (0.0-0.8); MONO % 1.7 % (2.0-8.0); NEUTROPHILS # 5.1 10^3/uL (1.5-8.5); RED BLOOD COUNT 2.92 10^6/uL (4.30-6.10)
[2024-05-06 08:16] LABS: PLATELET COUNT, AUTOMATED 10 10^3/uL (150-450)
[2024-05-06 08:35] LABS: ALBUMIN 2.6 G/DL (3.2-5.2); ALKALINE PHOSPHATASE 107 U/L (40-129); ALT/SGPT 11 U/L (7.0-40); AST/SGOT 12 U/L (<34); BILIRUBIN,TOTAL 0.5 MG/DL (0.3-1.2); BLOOD UREA NITROGEN 14 MG/DL (9-23); CALCIUM LEVEL 8.5 MG/DL (8.3-10.6); CARBON DIOXIDE LEVEL 26 MMOL/L (20-31); CHLORIDE LEVEL 105 MMOL/L (98-107); CREATININE FOR GFR 0.54 MG/DL (0.70-1.30); GLOMERULAR FILTRATION RATE > 60.0 (>42); GLUCOSE, FASTING 151 MG/DL (74-106); MAGNESIUM LEVEL 1.9 MG/DL (1.8-2.4); POTASSIUM SERUM 4.2 MMOL/L (3.5-5.1); SODIUM LEVEL 138 MMOL/L (136-145); TOTAL PROTEIN 6.3 G/DL (5.7-8.2)
[2024-05-06 10:40] LABS: FOLATE 4.96 NG/ML (>5.4)
[2024-05-06] MEDS: FOLIC ACID 1MG TAB PO SCH (19:13)
[2024-05-06] MEDS: VANCOMYCIN 1,000MG/200 ML IV BAG IV SCH (21:11)
[2024-05-07] VITALS (16 sets, daily range): BP systolic 124–154; BP diastolic 62–84; TEMP 96.5–98.3; O2SAT 91–98
[2024-05-07 05:57] LABS: HEMOGLOBIN 7.8 g/dl (13.5-17.5); MEAN CORPUSCULAR HGB CONC 33.9 g/dl (32.0-36.5); MEAN CORPUSCULAR VOLUME 91.3 fl (80.0-96.0); RED BLOOD COUNT 2.52 10^6/uL (4.30-6.10); WHITE BLOOD COUNT 4.1 10^3/uL (4.0-10.0)
[2024-05-07 06:07] LABS: PLATELET COUNT, AUTOMATED 46 10^3/uL (150-450)
[2024-05-07 06:28] LABS: ALBUMIN 2.5 G/DL (3.2-5.2); ALKALINE PHOSPHATASE 95 U/L (40-129); ALT/SGPT 24 U/L (7.0-40); AST/SGOT 27 U/L (<34); BILIRUBIN,TOTAL 0.3 MG/DL (0.3-1.2); BLOOD UREA NITROGEN 20 MG/DL (9-23); CALCIUM LEVEL 8.4 MG/DL (8.3-10.6); CARBON DIOXIDE LEVEL 26 MMOL/L (20-31); CHLORIDE LEVEL 106 MMOL/L (98-107); CREATININE FOR GFR 0.54 MG/DL (0.70-1.30); GLOMERULAR FILTRATION RATE > 60.0 (>42); GLUCOSE, FASTING 149 MG/DL (74-106); SODIUM LEVEL 139 MMOL/L (136-145); TOTAL PROTEIN 6.2 G/DL (5.7-8.2)
[2024-05-07 07:22] LABS: LYMPHOCYTES 10 % (16-44); MONOCYTES 2 % (0-5); NEUTROPHILS 86 % (28-66)
[2024-05-07 07:23] LABS: PLATELET ESTIMATE DECREASED (NORMAL)
[2024-05-07] MEDS: ACETAMINOPHEN 325 MG TAB PO PRN (10:04)
[2024-05-07 15:00] LABS: HEMATOCRIT 25.2 % (42.0-52.0); HEMOGLOBIN 8.6 g/dl (13.5-17.5); MEAN CORPUSCULAR HEMOGLOBIN 30.8 pg (27.0-33.0); MEAN CORPUSCULAR HGB CONC 34.1 g/dl (32.0-36.5); MEAN CORPUSCULAR VOLUME 90.3 fl (80.0-96.0); RED BLOOD COUNT 2.79 10^6/uL (4.30-6.10); WHITE BLOOD COUNT 4.7 10^3/uL (4.0-10.0)
[2024-05-07 15:01] LABS: PLATELET COUNT, AUTOMATED 55 10^3/uL (150-450)
[2024-05-07 17:31] LABS: CSF TUBE# TP TUBE 2; TOTAL PROTEIN,CSF 41.8 MG/DL (15-45)
[2024-05-07 17:33] LABS: CSF TUBE# GLU TUBE 2
[2024-05-07 19:30] LABS: APPEARANCE, CSF CLEAR (CLEAR); COLOR, CSF COLORLESS (COLORLESS); CSF TUBE# CELL CNT TUBE 1
[2024-05-08 03:30] VITALS: BP 151/82; TEMP 97.7; O2SAT 97
[2024-05-08 07:07] LABS: HEMATOCRIT 24.8 % (42.0-52.0); HEMOGLOBIN 8.4 g/dl (13.5-17.5); LYMPH # 0.4 10^3/uL (1.5-5.0); LYMPH % 9.4 % (24.0-44.0); MEAN CORPUSCULAR HEMOGLOBIN 30.1 pg (27.0-33.0); MEAN CORPUSCULAR HGB CONC 33.9 g/dl (32.0-36.5); MEAN CORPUSCULAR VOLUME 88.9 fl (80.0-96.0); MONO # 0.1 10^3/uL (0.0-0.8); MONO % 2.6 % (2.0-8.0); NEUTROPHILS # 3.3 10^3/uL (1.5-8.5); NEUTROPHILS % 85.9 % (36.0-66.0); RED BLOOD COUNT 2.79 10^6/uL (4.30-6.10); WHITE BLOOD COUNT 3.8 10^3/uL (4.0-10.0)
[2024-05-08 07:19] LABS: PLATELET COUNT, AUTOMATED 50 10^3/uL (150-450)
[2024-05-08 07:25] VITALS: BP 157/88; TEMP 98.1; O2SAT 94
[2024-05-08 07:31] LABS: ALBUMIN 2.6 G/DL (3.2-5.2); ALKALINE PHOSPHATASE 86 U/L (40-129); ALT/SGPT 42 U/L (7.0-40); AST/SGOT 36 U/L (<34); BILIRUBIN,TOTAL 0.4 MG/DL (0.3-1.2); BLOOD UREA NITROGEN 24 MG/DL (9-23); CALCIUM LEVEL 8.7 MG/DL (8.3-10.6); CARBON DIOXIDE LEVEL 26 MMOL/L (20-31); CHLORIDE LEVEL 104 MMOL/L (98-107); CREATININE FOR GFR 0.63 MG/DL (0.70-1.30); GLOMERULAR FILTRATION RATE > 60.0 (>42); GLUCOSE, FASTING 134 MG/DL (74-106); MAGNESIUM LEVEL 1.9 MG/DL (1.8-2.4); POTASSIUM SERUM 4.1 MMOL/L (3.5-5.1); SODIUM LEVEL 138 MMOL/L (136-145); TOTAL PROTEIN 6.3 G/DL (5.7-8.2)
[2024-05-08] MEDS: SENOKOT S TAB PO PRN (08:35)
[2024-05-08 11:10] VITALS: BP 138/81; TEMP 98.4; O2SAT 95
[2024-05-08 13:12] LABS: LYME TOTAL ANTIBODY CIA <= 0.90 Index (<=0.90)
[2024-05-08] MEDS ORDERED: DECI1TAB PO (16:51)
[2024-05-08 17:52] LABS: HEP INDUCED PLT AB PATIENT OD 0.128 OD UNITS (<=0.300); HEPARIN INDUCED PLATELET ABY Negative (Negative)
[2024-05-08 19:26] LABS: PROCALCITONIN 0.19 ng/ml
[2024-05-08 19:33] LABS: ERYTHROCYTE SEDIMENTATION RATE 33 mm/hr (0-20)
[2024-05-08 20:00] VITALS: BP 115/67; TEMP 98.2; O2SAT 94
[2024-05-08] MEDS: DOXYCYCLINE HYCLATE 100MG TABLET PO SCH (20:47)
[2024-05-09 04:00] VITALS: BP 144/83; TEMP 98.2; O2SAT 94
[2024-05-09 04:53] LABS: HEMATOCRIT 26.2 % (42.0-52.0); HEMOGLOBIN 8.9 g/dl (13.5-17.5); LYMPH # 0.2 10^3/uL (1.5-5.0); LYMPH % 8.6 % (24.0-44.0); MEAN CORPUSCULAR HEMOGLOBIN 29.7 pg (27.0-33.0); MEAN CORPUSCULAR VOLUME 87.3 fl (80.0-96.0); MONO # 0.2 10^3/uL (0.0-0.8); MONO % 5.7 % (2.0-8.0); NEUTROPHILS # 2.4 10^3/uL (1.5-8.5); NEUTROPHILS % 83.9 % (36.0-66.0); WHITE BLOOD COUNT 2.8 10^3/uL (4.0-10.0)
[2024-05-09 05:04] LABS: PLATELET COUNT, AUTOMATED 40 10^3/uL (150-450)
[2024-05-09 05:24] LABS: ALBUMIN 2.8 G/DL (3.2-5.2); ALKALINE PHOSPHATASE 85 U/L (40-129); ALT/SGPT 39 U/L (7.0-40); AST/SGOT 19 U/L (<34); BILIRUBIN,TOTAL 0.6 MG/DL (0.3-1.2); BLOOD UREA NITROGEN 22 MG/DL (9-23); CALCIUM LEVEL 8.5 MG/DL (8.3-10.6); CARBON DIOXIDE LEVEL 27 MMOL/L (20-31); CHLORIDE LEVEL 103 MMOL/L (98-107); GLOMERULAR FILTRATION RATE > 60.0 (>42); GLUCOSE, FASTING 129 MG/DL (74-106); MAGNESIUM LEVEL 1.9 MG/DL (1.8-2.4); SODIUM LEVEL 138 MMOL/L (136-145); TOTAL PROTEIN 6.4 G/DL (5.7-8.2)
[2024-05-09 12:00] VITALS: BP 166/88; TEMP 97.7; O2SAT 94
[2024-05-09 18:08] LABS: UNFRACTIONATED HEPARIN HI DOSE 5 % Release; UNFRACTIONATED HEPARIN INTERP Negative (Negative); UNFRACTIONATED HEPARIN LOW 8 % Release; UNFRACTIONATED HEPARIN LOW DOS 0 % Release
[2024-05-09 19:33] VITALS: BP 109/71; TEMP 99; O2SAT 93
[2024-05-09 20:13] LABS: COPPER PLASMA 141 mcg/dL (70-175)
[2024-05-10] VITALS (8 sets, daily range): BP systolic 111–136; BP diastolic 67–82; TEMP 97.2–98.6; O2SAT 94–97
[2024-05-10 05:14] LABS: HEMATOCRIT 28.2 % (42.0-52.0); HEMOGLOBIN 9.7 g/dl (13.5-17.5); MEAN CORPUSCULAR HEMOGLOBIN 30.1 pg (27.0-33.0); MEAN CORPUSCULAR HGB CONC 34.4 g/dl (32.0-36.5); MEAN CORPUSCULAR VOLUME 87.6 fl (80.0-96.0); RED BLOOD COUNT 3.22 10^6/uL (4.30-6.10); WHITE BLOOD COUNT 1.6 10^3/uL (4.0-10.0)
[2024-05-10 05:34] LABS: PLATELET COUNT, AUTOMATED 27 10^3/uL (150-450)
[2024-05-10 05:42] LABS: ALBUMIN 2.7 G/DL (3.2-5.2); ALKALINE PHOSPHATASE 82 U/L (40-129); ALT/SGPT 28 U/L (7.0-40); AST/SGOT 10 U/L (<34); BILIRUBIN,TOTAL 0.9 MG/DL (0.3-1.2); BLOOD UREA NITROGEN 26 MG/DL (9-23); CALCIUM LEVEL 8.4 MG/DL (8.3-10.6); CARBON DIOXIDE LEVEL 28 MMOL/L (20-31); CHLORIDE LEVEL 100 MMOL/L (98-107); CREATININE FOR GFR 0.63 MG/DL (0.70-1.30); GLOMERULAR FILTRATION RATE > 60.0 (>42); GLUCOSE, FASTING 101 MG/DL (74-106); MAGNESIUM LEVEL 1.8 MG/DL (1.8-2.4); POTASSIUM SERUM 3.7 MMOL/L (3.5-5.1); SODIUM LEVEL 134 MMOL/L (136-145); TOTAL PROTEIN 6.2 G/DL (5.7-8.2)
[2024-05-10 05:54] LABS: ANISOCYTOSIS 1+; ATYPICAL LYMPH 3 % (0-5); LYMPHOCYTES 14 % (16-44); MONOCYTES 9 % (0-5); NEUTROPHILS 71 % (28-66); PLATELET ESTIMATE DECREASED (NORMAL)
[2024-05-10 05:55] LABS: OVALOCYTES 1+; POIKILOCYTOSIS 1+
[2024-05-10] MEDS: predniSONE 20 MG TAB PO SCH (11:20)
[2024-05-10] MEDS: oxyCODONE 20MG CR TAB PO SCH (12:00)
[2024-05-10 13:57] LABS: VITAMIN B1 LEVEL WHOLE BLOOD 86 nmol/L (78-185)
[2024-05-10 14:27] LABS: BORRELIA SPECIES DNA NOT DETECTED (NOT DETECT)
[2024-05-10] MEDS: oxyCODONE 5MG TAB PO PRN (15:03)
[2024-05-10 16:08] LABS: Ehrlichia chaffeensis NOT DETECTED (NOT DETECT)
[2024-05-10 23:03] LABS: Anaplasma phagocytophilum NOT DETECTED (NOT DETECT); Babesia microti NOT DETECTED (NOT DETECT)
[2024-05-11 04:32] VITALS: BP 105/69; TEMP 97.2; O2SAT 96
[2024-05-11 06:22] LABS: HEMOGLOBIN 9.3 g/dl (13.5-17.5); LYMPH # 0.3 10^3/uL (1.5-5.0); LYMPH % 20.9 % (24.0-44.0); MEAN CORPUSCULAR HEMOGLOBIN 29.4 pg (27.0-33.0); MEAN CORPUSCULAR HGB CONC 33.2 g/dl (32.0-36.5); MEAN CORPUSCULAR VOLUME 88.6 fl (80.0-96.0); MONO # 0.1 10^3/uL (0.0-0.8); NEUTROPHILS % 64.3 % (36.0-66.0); RED BLOOD COUNT 3.16 10^6/uL (4.30-6.10); WHITE BLOOD COUNT 1.3 10^3/uL (4.0-10.0)
[2024-05-11 06:32] LABS: NEUTROPHILS # 0.8 10^3/uL (1.5-8.5); PLATELET COUNT, AUTOMATED 23 10^3/uL (150-450)
[2024-05-11 06:44] LABS: ALBUMIN 2.5 G/DL (3.2-5.2); ALKALINE PHOSPHATASE 77 U/L (40-129); ALT/SGPT 21 U/L (7.0-40); AST/SGOT < 8 U/L (<34); BILIRUBIN,TOTAL 0.6 MG/DL (0.3-1.2); BLOOD UREA NITROGEN 28 MG/DL (9-23); CALCIUM LEVEL 8.1 MG/DL (8.3-10.6); CARBON DIOXIDE LEVEL 28 MMOL/L (20-31); CHLORIDE LEVEL 104 MMOL/L (98-107); CREATININE FOR GFR 0.69 MG/DL (0.70-1.30); GLOMERULAR FILTRATION RATE > 60.0 (>42); GLUCOSE, FASTING 113 MG/DL (74-106); POTASSIUM SERUM 3.9 MMOL/L (3.5-5.1); SODIUM LEVEL 138 MMOL/L (136-145); TOTAL PROTEIN 5.9 G/DL (5.7-8.2)
[2024-05-11] MEDS: GABAPENTIN 100 MG CAP PO SCH (08:15)
[2024-05-11] MEDS ORDERED: NALOXONE INJ 0.4MG/1ML VIAL IV PRN (10:55)
[2024-05-11 12:00] VITALS: BP 129/69; TEMP 97.7; O2SAT 97
[2024-05-11] MEDS ORDERED: oxyCODONE 5MG TAB PO PRN (12:30)
[2024-05-11 16:19] VITALS: BP 130/71; TEMP 98.6; O2SAT 95
[2024-05-11 17:57] LABS: ACETYLCHOLINE RCPTOR BINDING A < 0.30 nmol/L (<=0.30)
[2024-05-11 18:00] VITALS: BP 130/73; TEMP 98.8; O2SAT 96
[2024-05-11 18:30] VITALS: BP 128/71; TEMP 98.1; O2SAT 95
[2024-05-11] MEDS: oxyCODONE 20MG CR TAB PO SCH (20:11)
[2024-05-11 20:27] VITALS: BP 129/72; TEMP 98.8; O2SAT 94
[2024-05-12 04:29] VITALS: BP 126/71; TEMP 97.9; O2SAT 95
[2024-05-12] MEDS: oxyCODONE 5MG TAB PO PRN (07:02)
[2024-05-12 11:47] LABS: BLOOD UREA NITROGEN 26 MG/DL (9-23); CALCIUM LEVEL 8.5 MG/DL (8.3-10.6); CARBON DIOXIDE LEVEL 28 MMOL/L (20-31); CHLORIDE LEVEL 104 MMOL/L (98-107); CREATININE FOR GFR 0.76 MG/DL (0.70-1.30); GLOMERULAR FILTRATION RATE > 60.0 (>42); GLUCOSE, FASTING 113 MG/DL (74-106); POTASSIUM SERUM 3.9 MMOL/L (3.5-5.1); SODIUM LEVEL 136 MMOL/L (136-145)
[2024-05-12 11:58] LABS: HEMATOCRIT 28.2 % (42.0-52.0); HEMOGLOBIN 9.4 g/dl (13.5-17.5); LYMPH # 0.3 10^3/uL (1.5-5.0); MEAN CORPUSCULAR HEMOGLOBIN 29.6 pg (27.0-33.0); MEAN CORPUSCULAR HGB CONC 33.3 g/dl (32.0-36.5); MEAN CORPUSCULAR VOLUME 88.7 fl (80.0-96.0); MONO # 0.1 10^3/uL (0.0-0.8); NEUTROPHILS # 1.3 10^3/uL (1.5-8.5); NEUTROPHILS % 77.2 % (36.0-66.0); RED BLOOD COUNT 3.18 10^6/uL (4.30-6.10); WHITE BLOOD COUNT 1.7 10^3/uL (4.0-10.0)
[2024-05-12 12:02] LABS: PLATELET COUNT, AUTOMATED 37 10^3/uL (150-450)
[2024-05-12 19:50] VITALS: BP 114/65; TEMP 98.1; O2SAT 95
[2024-05-12 23:40] VITALS: BP 107/50; TEMP 97.7; O2SAT 94
[2024-05-13 03:20] VITALS: BP 123/68; TEMP 97.7; O2SAT 92
[2024-05-13 06:22] LABS: HEMATOCRIT 27.3 % (42.0-52.0); HEMOGLOBIN 9.3 g/dl (13.5-17.5); MEAN CORPUSCULAR HEMOGLOBIN 30.3 pg (27.0-33.0); MEAN CORPUSCULAR HGB CONC 34.1 g/dl (32.0-36.5); MEAN CORPUSCULAR VOLUME 88.9 fl (80.0-96.0); RED BLOOD COUNT 3.07 10^6/uL (4.30-6.10); WHITE BLOOD COUNT 1.4 10^3/uL (4.0-10.0)
[2024-05-13 06:31] LABS: PLATELET COUNT, AUTOMATED 26 10^3/uL (150-450)
[2024-05-13 06:49] LABS: BLOOD UREA NITROGEN 24 MG/DL (9-23); CALCIUM LEVEL 8.7 MG/DL (8.3-10.6); CARBON DIOXIDE LEVEL 29 MMOL/L (20-31); CHLORIDE LEVEL 102 MMOL/L (98-107); GLOMERULAR FILTRATION RATE > 60.0 (>42); GLUCOSE, FASTING 99 MG/DL (74-106); POTASSIUM SERUM 4.3 MMOL/L (3.5-5.1); SODIUM LEVEL 136 MMOL/L (136-145)
[2024-05-13 08:00] VITALS: BP 132/66; TEMP 97.5; O2SAT 98
[2024-05-13 08:08] LABS: ANISOCYTOSIS 1+; ATYPICAL LYMPH 2 % (0-5); LYMPHOCYTES 20 % (16-44); MONOCYTES 5 % (0-5); NEUTROPHILS 71 % (28-66)
[2024-05-13 08:11] LABS: OVALOCYTES 1+
[2024-05-13 08:13] LABS: PLATELET ESTIMATE DECREASED (NORMAL)
[2024-05-13] MEDS ORDERED: NARC1SPR NARES (11:57)
[2024-05-13] MEDS ORDERED: PRED10TA2 PO (11:57)
[2024-05-13] MEDS ORDERED: OXYC20TA40 PO (11:57)
[2024-05-13] MEDS ORDERED: LIDO5TD TD (11:57)
[2024-05-13 12:00] VITALS: BP 141/80; TEMP 97.7; O2SAT 94
[2024-05-13] MEDS ORDERED: SENN-52 PO (12:04)
[2024-05-13] MEDS ORDERED: MIRA3350 PO (12:04)
[2024-05-13] MEDS: FILGRASTIM 480 MCG/0.8 ML SYRINGE **SC ADMINISTRATION ONLY SC ONE (13:30)
[2024-05-17 14:18] LABS: CSF LYME DISEASE AB IGG NO BANDS DETECTED (NO BANDS); CSF LYME DISEASE AB IGM NO BANDS DETECTED (NO BANDS)
== END 2024-05-13 13:49 | disposition home or self-care (01) | DRG 555 ==
LOC: M ED 15:12 → M ED INP 23:09 → M PCU 05-04 01:15 → M MSPAV 05-08 11:08
PROVIDERS: ADMIT Internal Medicine; ATTEND Student in an Organized Health Care Education/Training Program
PROC: 30233R1 Transfusion of Nonautologous Platelets into Peripheral Vein, Percutaneous Approach (ICD-10-PCS; principal; 2024-05-06)
PROC: 009U3ZX Drainage of Spinal Canal, Percutaneous Approach, Diagnostic (ICD-10-PCS; 2024-05-07)
PROC: B246ZZZ Ultrasonography of Right and Left Heart (ICD-10-PCS; 2024-05-10)
DX: M60.9 Myositis, unspecified (principal); G93.41 Metabolic encephalopathy; D61.818 Other pancytopenia; D84.9 Immunodeficiency, unspecified; E87.20 Acidosis, unspecified; D46.9 Myelodysplastic syndrome, unspecified; D69.6 Thrombocytopenia, unspecified; G25.81 Restless legs syndrome; G62.9 Polyneuropathy, unspecified; M51.26 Other intervertebral disc displacement, lumbar region; I48.91 Unspecified atrial fibrillation; G89.29 Other chronic pain; J43.9 Emphysema, unspecified; J45.909 Unspecified asthma, uncomplicated; Z79.2 Long term (current) use of antibiotics; Z79.899 Other long term (current) drug therapy; Z79.891 Long term (current) use of opiate analgesic; Z85.118 Personal history of other malignant neoplasm of bronchus and lung; Z92.3 Personal history of irradiation; Z92.21 Personal history of antineoplastic chemotherapy; Z87.891 Personal history of nicotine dependence

== ENCOUNTER → 2024-05-19 | Outpatient (CLI) | payer MEDICARE ==
[~2024-05-19] MED LIST changes: +CIPR500T39 PO; +DECI1TAB PO; +FLUT1BLS8 INH; +LIDO5TD TD; +MIRA3350 PO; +NARC1SPR NARES; +OXYC-517 PO; +OXYC20TA40 PO; +PRED10TA2 PO; +SENN-52 PO; +TRAM50TA2 PO
[2024-05-19 16:39] LABS: ALKALINE PHOSPHATASE 98 U/L (40-129); ALT/SGPT 20 U/L (7.0-40); AST/SGOT 10 U/L (<34); BILIRUBIN,TOTAL 0.6 MG/DL (0.3-1.2); BLOOD UREA NITROGEN 25 MG/DL (9-23); CARBON DIOXIDE LEVEL 24 MMOL/L (20-31); CHLORIDE LEVEL 100 MMOL/L (98-107); CREATININE FOR GFR 0.86 MG/DL (0.70-1.30); GLOMERULAR FILTRATION RATE > 60.0 (>42); GLUCOSE, FASTING 251 MG/DL (74-106); POTASSIUM SERUM 4.9 MMOL/L (3.5-5.1); SODIUM LEVEL 135 MMOL/L (136-145); TOTAL PROTEIN 6.8 G/DL (5.7-8.2)
[2024-05-19 16:43] LABS: HEMATOCRIT 33.3 % (42.0-52.0); HEMOGLOBIN 10.7 g/dl (13.5-17.5); MEAN CORPUSCULAR HEMOGLOBIN 29.6 pg (27.0-33.0); MEAN CORPUSCULAR HGB CONC 32.1 g/dl (32.0-36.5); RED BLOOD COUNT 3.62 10^6/uL (4.30-6.10); WHITE BLOOD COUNT 2.4 10^3/uL (4.0-10.0)
[2024-05-19 17:20] LABS: PLATELET COUNT, AUTOMATED 11 10^3/uL (150-450)
[2024-05-19 18:12] LABS: ANISOCYTOSIS 1+; ATYPICAL LYMPH 1 % (0-5); LYMPHOCYTES 15 % (16-44); METAMYELOCYTES 2 % (0-0); MONOCYTES 1 % (0-5); NEUTROPHILS 78 % (28-66); NUCLEATED RED BLOOD CELL 1 % (0-0)
[2024-05-19 18:13] LABS: OVALOCYTES 1+; PLATELET ESTIMATE DECREASED (NORMAL)
== END ==
LOC: M WUC 13:12
PROVIDERS: ATTEND Internal Medicine
DX: D46.9 Myelodysplastic syndrome, unspecified (principal)

== ENCOUNTER → 2024-05-29 | Outpatient (REF) | payer MEDICARE ==
[~2024-05-29] MED LIST changes: +ACYC1TAB PO; +BACT800T5 PO; +FOLI1TAB11 PO; +LEVO1TAB39 PO; +OXYC-517
== END ==
LOC: M LAB REF 10:39
PROVIDERS: ATTEND Internal Medicine
DX: C34.90 Malignant neoplasm of unspecified part of unspecified bronchus or lung (principal); R31.9 Hematuria, unspecified

== ENCOUNTER 2024-06-12 10:35 | Inpatient (IN) | payer MEDICARE ==
[~2024-06-12] VITALS: Ht 177.8 cm; Wt 63.8 kg
[2024-06-12] VITALS (13 sets, daily range): BP systolic 111–131; BP diastolic 58–94; TEMP 97.3–98.3; O2SAT 96–99
[~2024-06-12 10:35] MED LIST changes: +FLUC-1 PO; +MAGICMW SSP; -OXYC-517
[2024-06-12] MEDS: ONDANSETRON 4MG 2ML VIAL IV ONE (11:08)
[2024-06-12] MEDS: MORPHINE 2 MG/ML 1ML VIAL IV PRN (11:08)
[2024-06-12] MEDS: NS 500 ML IV ONE (11:09)
[2024-06-12] MEDS: MAG SULF 1GM/100ML (MAG RUN) 1 GM in IV 1 EA IV ONE (11:44)
[2024-06-12] MEDS: NS (Normal Saline) 0.9% 1,000 ML IV ONE (11:44)
[2024-06-12] MEDS ORDERED: MAGICMW SSP (11:48)
[2024-06-12] MEDS ORDERED: MORP-69 PO (11:48)
[2024-06-12] MEDS ORDERED: FOLI1TAB11 PO (11:48)
[2024-06-12] MEDS ORDERED: PRED10TA2 PO (11:48)
[2024-06-12] MEDS ORDERED: HUMU1INJ2 SC (11:48)
[2024-06-12] MEDS ORDERED: OSEL75CA2 PO (11:48)
[2024-06-12] MEDS ORDERED: LEVO1TAB39 PO (11:48)
[2024-06-12] MEDS ORDERED: ACYC1TAB PO (11:48)
[2024-06-12] MEDS ORDERED: FLOM0.4C39 PO (11:48)
[2024-06-12] MEDS ORDERED: BACT800T5 PO (11:48)
[2024-06-12] MEDS ORDERED: NYST-38 SS (11:48)
[2024-06-12] MEDS ORDERED: HOME MED LIST COMPLETE! XX SCH (11:50)
[2024-06-12] MEDS ORDERED: DEXTROSE 50% 50ML SYRINGE IV PRN (12:55)
[2024-06-12] MEDS ORDERED: GLUCAGON INJ 1MG VIAL SC PRN (12:55)
[2024-06-12] MEDS ORDERED: GLUCOSE 4 GM CHEW PO PRN (12:55)
[2024-06-12] MEDS: OSELTAMIVIR PHOSPHATE 75 MG CAP (TAMIFLU) PO SCH (13:55)
[2024-06-12] MEDS: TAMSULOSIN 0.4 MG CAP PO SCH (13:55)
[2024-06-12 13:56] LABS: PREALBUMIN 10.2 MG/DL (10.0-40.0)
[2024-06-12] MEDS: NYSTATIN 500,000U/5ML SUSP UDC PO SCH (13:56)
[2024-06-12] MEDS: DULoxetine 30MG CAPSULE (CYMBALTA) PO SCH (13:56)
[2024-06-12] MEDS: FOLIC ACID 1MG TAB PO SCH (13:56)
[2024-06-12] MEDS: FLUCONAZOLE 200 MG in IV 1 EA IV ONE (13:58)
[2024-06-12] MEDS: LevoFLOXacin 500 MG TABLET PO SCH (13:58)
[2024-06-12] MEDS: FILGRASTIM 480 MCG/0.8 ML SYRINGE **SC ADMINISTRATION ONLY SC SCH (15:07)
[2024-06-12] MEDS: HumuLIN N INSULIN (NovoLIN N) PER UNIT SC SCH (15:09)
[2024-06-12] MEDS: oxyCODONE 5MG TAB PO PRN (15:52)
[2024-06-12] MEDS: LIDOCAINE VISCOUS 2% SOLN 15ML UDC SS PRN (15:52)
[2024-06-12] MEDS: GABAPENTIN 400MG CAP PO SCH (16:21)
[2024-06-12] MEDS: INSULIN LISPRO (NovoLOG) PER UNIT SC SCH ×2 (17:12→20:46)
[2024-06-12] MEDS: rOPINIRole 0.25 MG TAB(REQUIP) PO SCH (17:49)
[2024-06-12] MEDS: ADVAIR HFA 230/21MCG INHALER INH SCH (20:00)
[2024-06-12] MEDS: ACYCLOVIR 200 MG CAPSULE PO SCH (20:44)
[2024-06-12] MEDS: MORPHINE SULFATE TAB EXT REL 15 MG PO SCH (20:45)
[2024-06-12 21:29] LABS: HEMATOCRIT 24.3 % (42.0-52.0); HEMOGLOBIN 8.4 g/dl (13.5-17.5)
[2024-06-13 00:51] VITALS: BP 128/78; TEMP 97.7; O2SAT 97
[2024-06-13 01:52] VITALS: BP 125/67; TEMP 97.8; O2SAT 98
[2024-06-13 04:00] VITALS: BP 126/80; TEMP 97.7; O2SAT 95
[2024-06-13 06:27] LABS: HEMATOCRIT 23.6 % (42.0-52.0); LYMPH # 0.2 10^3/uL (1.5-5.0); LYMPH % 85.2 % (24.0-44.0); MEAN CORPUSCULAR HEMOGLOBIN 29.2 pg (27.0-33.0); MEAN CORPUSCULAR HGB CONC 33.9 g/dl (32.0-36.5); MEAN CORPUSCULAR VOLUME 86.1 fl (80.0-96.0); NEUTROPHILS % 14.8 % (36.0-66.0); RED BLOOD COUNT 2.74 10^6/uL (4.30-6.10)
[2024-06-13 06:46] LABS: PLATELET COUNT, AUTOMATED 19 10^3/uL (150-450); WHITE BLOOD COUNT 0.3 10^3/uL (4.0-10.0)
[2024-06-13 06:51] LABS: BLOOD UREA NITROGEN 23 MG/DL (9-23); CALCIUM LEVEL 8.2 MG/DL (8.3-10.6); CARBON DIOXIDE LEVEL 25 MMOL/L (20-31); CHLORIDE LEVEL 102 MMOL/L (98-107); CREATININE FOR GFR 0.77 MG/DL (0.70-1.30); GLOMERULAR FILTRATION RATE > 60.0 (>42); GLUCOSE, FASTING 88 MG/DL (74-106); POTASSIUM SERUM 3.9 MMOL/L (3.5-5.1); SODIUM LEVEL 135 MMOL/L (136-145)
[2024-06-13] MEDS: TIOTROPIUM INHALER/CAPSULE (SPIRIVA) INH SCH (07:45)
[2024-06-13] MEDS: BACTRIM 160MG/800MG DS TAB PO SCH (09:27)
[2024-06-13 12:49] VITALS: BP 117/80; TEMP 97.7; O2SAT 95
[2024-06-13] MEDS ORDERED: FLUCONAZOLE 100 MG in IV 1 EA IV SCH (14:05)
[2024-06-13] MEDS: FLUCONAZOLE 100 MG TAB PO SCH (14:22)
[2024-06-13 21:26] VITALS: BP 117/80; TEMP 97.9; O2SAT 92
[2024-06-13] MEDS: LIDOCAINE 5% (LIDODERM) PATCH TD SCH (22:30)
[2024-06-13 23:26] LABS: BLOOD UREA NITROGEN 18 MG/DL (9-23); CALCIUM LEVEL 7.5 MG/DL (8.3-10.6); CARBON DIOXIDE LEVEL 26 MMOL/L (20-31); CHLORIDE LEVEL 98 MMOL/L (98-107); CREATININE FOR GFR 0.71 MG/DL (0.70-1.30); GLOMERULAR FILTRATION RATE > 60.0 (>42); GLUCOSE, FASTING 133 MG/DL (74-106); MAGNESIUM LEVEL 1.6 MG/DL (1.8-2.4); POTASSIUM SERUM 3.8 MMOL/L (3.5-5.1); SODIUM LEVEL 132 MMOL/L (136-145)
[2024-06-14] VITALS (7 sets, daily range): BP systolic 106–117; BP diastolic 70–78; TEMP 97.3–98.4; O2SAT 95–97
[2024-06-14] MEDS: MAG SULF 1GM/100ML (MAG RUN) 1 GM in IV 1 EA IV SCH (01:03)
[2024-06-14 05:52] LABS: LYMPH # 0.2 10^3/uL (1.5-5.0); MEAN CORPUSCULAR HEMOGLOBIN 29.6 pg (27.0-33.0); MEAN CORPUSCULAR HGB CONC 34.8 g/dl (32.0-36.5); MEAN CORPUSCULAR VOLUME 85.2 fl (80.0-96.0)
[2024-06-14 05:53] LABS: WHITE BLOOD COUNT 0.3 10^3/uL (4.0-10.0)
[2024-06-14 05:54] LABS: PLATELET COUNT, AUTOMATED 12 10^3/uL (150-450)
[2024-06-14 06:24] LABS: BLOOD UREA NITROGEN 16 MG/DL (9-23); CALCIUM LEVEL 7.6 MG/DL (8.3-10.6); CARBON DIOXIDE LEVEL 27 MMOL/L (20-31); CHLORIDE LEVEL 99 MMOL/L (98-107); CREATININE FOR GFR 0.67 MG/DL (0.70-1.30); GLOMERULAR FILTRATION RATE > 60.0 (>42); GLUCOSE, FASTING 108 MG/DL (74-106); POTASSIUM SERUM 3.7 MMOL/L (3.5-5.1); SODIUM LEVEL 132 MMOL/L (136-145)
[2024-06-14] MEDS: ACETAMINOPHEN *IV* 1,000 MG in IV 1 EA IV ONE (09:45)
[2024-06-14] MEDS: HYDROMORPHONE HCL 0.5 MG/ 0.5 ML SYRINGE IV ONE (09:46)
[2024-06-15] VITALS (13 sets, daily range): BP systolic 77–121; BP diastolic 52–66; TEMP 97.7–98.5; O2SAT 94–100
[2024-06-15] MEDS: ACETAMINOPHEN 325 MG TAB PO ONE (03:57)
[2024-06-15 05:16] LABS: HEMATOCRIT 23.7 % (42.0-52.0); HEMOGLOBIN 8.1 g/dl (13.5-17.5); LYMPH # 0.2 10^3/uL (1.5-5.0); LYMPH % 85.7 % (24.0-44.0); MEAN CORPUSCULAR HEMOGLOBIN 29.7 pg (27.0-33.0); MEAN CORPUSCULAR HGB CONC 34.2 g/dl (32.0-36.5); MEAN CORPUSCULAR VOLUME 86.8 fl (80.0-96.0); NEUTROPHILS % 14.3 % (36.0-66.0); RED BLOOD COUNT 2.73 10^6/uL (4.30-6.10)
[2024-06-15 05:17] LABS: PLATELET COUNT, AUTOMATED 27 10^3/uL (150-450); WHITE BLOOD COUNT 0.2 10^3/uL (4.0-10.0)
[2024-06-15 05:54] LABS: BLOOD UREA NITROGEN 14 MG/DL (9-23); CARBON DIOXIDE LEVEL 27 MMOL/L (20-31); CHLORIDE LEVEL 100 MMOL/L (98-107); CREATININE FOR GFR 0.63 MG/DL (0.70-1.30); GLOMERULAR FILTRATION RATE > 60.0 (>42); GLUCOSE, FASTING 118 MG/DL (74-106); POTASSIUM SERUM 3.8 MMOL/L (3.5-5.1); SODIUM LEVEL 136 MMOL/L (136-145)
[2024-06-15] MEDS ORDERED: dilTIAZem 25MG/5ML VIAL IV STA (07:43)
[2024-06-15] MEDS: NS (Normal Saline) 0.9% 1,000 ML IV ONE ×2 (07:50→08:33)
[2024-06-15] MEDS: DIGOXIN INJ 0.5 MG/2 ML AMP IV STA ×2 (07:51→14:51)
[2024-06-15] MEDS: ADENOSINE 6MG 2ML INJECTION IV STA (07:52)
[2024-06-15] MEDS: MIDODRINE 5 MG TAB PO SCH (08:15)
[2024-06-15] MEDS: AMIODARONE HCL 150 MG in IV 1 EA IV ONE (08:33)
[2024-06-15] MEDS: AMIODARONE HCL 360 MG in IV 1 EA IV SCH ×2 (08:37→14:14)
[2024-06-15] MEDS: METOPROLOL 5 MG/5 ML VIAL IV ONE (15:13)
[2024-06-15] MEDS ORDERED: METOPROLOL 5 MG/5 ML VIAL IV SCH (18:00)
[2024-06-15] MEDS: DIGOXIN INJ 0.5 MG/2 ML AMP IV ONE (22:47)
[2024-06-16] VITALS (8 sets, daily range): BP systolic 93–138; BP diastolic 54–80; TEMP 96.8–97.9; O2SAT 91–98
[2024-06-16 07:47] LABS: HEMATOCRIT 24.1 % (42.0-52.0); HEMOGLOBIN 8.3 g/dl (13.5-17.5); LYMPH # 0.2 10^3/uL (1.5-5.0); LYMPH % 76.9 % (24.0-44.0); MEAN CORPUSCULAR HGB CONC 34.4 g/dl (32.0-36.5); MONO % 3.8 % (2.0-8.0); NEUTROPHILS % 11.6 % (36.0-66.0); RED BLOOD COUNT 2.77 10^6/uL (4.30-6.10)
[2024-06-16 07:51] LABS: WHITE BLOOD COUNT 0.3 10^3/uL (4.0-10.0)
[2024-06-16 07:52] LABS: PLATELET COUNT, AUTOMATED 21 10^3/uL (150-450)
[2024-06-16 08:06] LABS: BLOOD UREA NITROGEN 11 MG/DL (9-23); CARBON DIOXIDE LEVEL 27 MMOL/L (20-31); CHLORIDE LEVEL 100 MMOL/L (98-107); CHOLESTEROL LEVEL 131 MG/DL (<200); CHOLESTEROL RISK RATIO 4.74 (<5); CREATININE FOR GFR 0.53 MG/DL (0.70-1.30); DIGOXIN LEVEL 0.2 NG/ML (0.8-2.0); GLOMERULAR FILTRATION RATE > 60.0 (>42); GLUCOSE, FASTING 136 MG/DL (74-106); HDL CHOLESTEROL 27.6 MG/DL (>40); NON-HDL-C 103.4 MG/DL; POTASSIUM SERUM 3.7 MMOL/L (3.5-5.1); SODIUM LEVEL 133 MMOL/L (136-145); TRIGLYCERIDES LEVEL 152 MG/DL (<150)
[2024-06-16 08:08] LABS: FREE THYROXINE INDEX 4.2 % (1.4-3.8); T UPTAKE 60.8 % (22.5-37.0); THYROXINE (T4) 6.9 UG/DL (4.5-10.9)
[2024-06-16] MEDS: NS (Normal Saline) 0.9% 1,000 ML IV ONE (08:08)
[2024-06-16] MEDS: DIGOXIN INJ 0.5 MG/2 ML AMP IV STA (08:08)
[2024-06-16 08:09] LABS: THYROID STIMULATING HORMONE 1.535 uIU/ML (0.55-4.78)
[2024-06-16] MEDS: MIDODRINE 5 MG TAB PO ONE (08:27)
[2024-06-16] MEDS: LIDOCAINE VISCOUS 2% SOLN 15ML UDC SS SCH (09:55)
[2024-06-16] MEDS: METOPROLOL TART 25 MG TABLET PO SCH (09:59)
[2024-06-16] MEDS ORDERED: FLEET ENEMA PR PRN (11:30)
[2024-06-16] MEDS: BISACODYL 10MG SUPP PR PRN (13:07)
[2024-06-16] MEDS: DIGOXIN INJ 0.5 MG/2 ML AMP IV ONE ×2 (13:09→18:38)
[2024-06-16] MEDS: BISACODYL 10MG SUPP PR ONE (13:10)
[2024-06-16] MEDS: MORPHINE SULFATE TAB IMM. REL. 15 MG PO PRN (20:46)
[2024-06-17] VITALS (7 sets, daily range): BP systolic 98–119; BP diastolic 48–66; TEMP 97–98.3; O2SAT 93–96
[2024-06-17 07:24] LABS: BLOOD UREA NITROGEN 11 MG/DL (9-23); CALCIUM LEVEL 7.7 MG/DL (8.3-10.6); CARBON DIOXIDE LEVEL 28 MMOL/L (20-31); CHLORIDE LEVEL 101 MMOL/L (98-107); CREATININE FOR GFR 0.67 MG/DL (0.70-1.30); GLOMERULAR FILTRATION RATE > 60.0 (>42); GLUCOSE, FASTING 128 MG/DL (74-106); HEMATOCRIT 21.1 % (42.0-52.0); HEMOGLOBIN 7.3 g/dl (13.5-17.5); LYMPH # 0.2 10^3/uL (1.5-5.0); LYMPH % 61.5 % (24.0-44.0); MEAN CORPUSCULAR HEMOGLOBIN 29.7 pg (27.0-33.0); MEAN CORPUSCULAR HGB CONC 34.6 g/dl (32.0-36.5); MEAN CORPUSCULAR VOLUME 85.8 fl (80.0-96.0); MONO % 3.8 % (2.0-8.0); NEUTROPHILS % 30.9 % (36.0-66.0); POTASSIUM SERUM 3.9 MMOL/L (3.5-5.1); RED BLOOD COUNT 2.46 10^6/uL (4.30-6.10); SODIUM LEVEL 135 MMOL/L (136-145)
[2024-06-17 07:28] LABS: NEUTROPHILS # 0.1 10^3/uL (1.5-8.5)
[2024-06-17 07:30] LABS: PLATELET COUNT, AUTOMATED 15 10^3/uL (150-450); WHITE BLOOD COUNT 0.3 10^3/uL (4.0-10.0)
[2024-06-17] MEDS: DIGOXIN INJ 0.5 MG/2 ML AMP IV STA (09:15)
[2024-06-17] MEDS: NS (Normal Saline) 0.9% 1,000 ML IV ONE (09:16)
[2024-06-17] MEDS: MIDODRINE 5 MG TAB PO ONE (09:27)
[2024-06-17] MEDS: atenoloL 50 MG TAB PO ONE (09:55)
[2024-06-17] MEDS: DOCUSATE SOD LIQ 100MG/10ML UDC PO PRN (14:27)
[2024-06-17] MEDS ORDERED: RIZATRIPTAN MLT 10 MG TAB PO PRN (15:15)
[2024-06-17] MEDS: ACETAMINOPHEN 500 MG TAB PO ONE (17:57)
[2024-06-17] MEDS: atenoloL 50 MG TAB PO SCH (21:00)
[2024-06-17] MEDS: DIGOXIN INJ 0.5 MG/2 ML AMP IV ONE (21:21)
[2024-06-18] VITALS: BP 106/49; TEMP 97.3; O2SAT 95
[2024-06-18 04:30] VITALS: BP 105/56; TEMP 96.9; O2SAT 94
[2024-06-18 07:57] VITALS: BP 96/66; TEMP 97; O2SAT 91
[2024-06-18 08:10] LABS: HEMATOCRIT 21.4 % (42.0-52.0); HEMOGLOBIN 7.3 g/dl (13.5-17.5); LYMPH # 0.2 10^3/uL (1.5-5.0); LYMPH % 54.3 % (24.0-44.0); MEAN CORPUSCULAR HGB CONC 34.1 g/dl (32.0-36.5); MEAN CORPUSCULAR VOLUME 88.1 fl (80.0-96.0); MONO % 2.9 % (2.0-8.0); NEUTROPHILS % 37.1 % (36.0-66.0); RED BLOOD COUNT 2.43 10^6/uL (4.30-6.10)
[2024-06-18 08:16] LABS: NEUTROPHILS # 0.1 10^3/uL (1.5-8.5)
[2024-06-18 08:19] LABS: PLATELET COUNT, AUTOMATED 12 10^3/uL (150-450); WHITE BLOOD COUNT 0.4 10^3/uL (4.0-10.0)
[2024-06-18 08:28] LABS: BLOOD UREA NITROGEN 11 MG/DL (9-23); CALCIUM LEVEL 7.6 MG/DL (8.3-10.6); CARBON DIOXIDE LEVEL 29 MMOL/L (20-31); CHLORIDE LEVEL 101 MMOL/L (98-107); CREATININE FOR GFR 0.54 MG/DL (0.70-1.30); DIGOXIN LEVEL 0.7 NG/ML (0.8-2.0); GLOMERULAR FILTRATION RATE > 60.0 (>42); GLUCOSE, FASTING 112 MG/DL (74-106); POTASSIUM SERUM 4.4 MMOL/L (3.5-5.1); SODIUM LEVEL 137 MMOL/L (136-145)
[2024-06-18] MEDS ORDERED: BACTRIM 160MG/800MG DS TAB PO SCH (09:00)
[2024-06-18] MEDS: predniSONE 10MG TAB PO SCH (09:47)
[2024-06-18] MEDS: DIGOXIN INJ 0.5 MG/2 ML AMP IV ONE ×3 (10:18→22:08)
[2024-06-18] MEDS: MIDODRINE 5 MG TAB PO SCH (10:18)
[2024-06-18] MEDS: MAGIC MOUTHWASH 5ML ORAL SYRINGE SS PRN (11:25)
[2024-06-18 12:32] VITALS: BP 107/59; O2SAT 96
[2024-06-18] MEDS: NS 500 ML IV ONE (12:36)
[2024-06-18 16:08] VITALS: BP 103/63; TEMP 97.5; O2SAT 99
[2024-06-18 20:08] VITALS: BP 116/59; TEMP 97; O2SAT 98
[2024-06-19] VITALS (11 sets, daily range): BP systolic 94–113; BP diastolic 52–68; TEMP 96.6–99.2; O2SAT 94–98
[2024-06-19 06:33] LABS: BASO % 1.9 % (0.0-1.0); HEMATOCRIT 21.9 % (42.0-52.0); HEMOGLOBIN 7.3 g/dl (13.5-17.5); LYMPH # 0.2 10^3/uL (1.5-5.0); LYMPH % 38.5 % (24.0-44.0); MEAN CORPUSCULAR HEMOGLOBIN 28.6 pg (27.0-33.0); MEAN CORPUSCULAR HGB CONC 33.3 g/dl (32.0-36.5); MEAN CORPUSCULAR VOLUME 85.9 fl (80.0-96.0); MONO % 5.8 % (2.0-8.0); NEUTROPHILS % 46.1 % (36.0-66.0); RED BLOOD COUNT 2.55 10^6/uL (4.30-6.10)
[2024-06-19 06:47] LABS: BLOOD UREA NITROGEN 16 MG/DL (9-23); CARBON DIOXIDE LEVEL 25 MMOL/L (20-31); CHLORIDE LEVEL 101 MMOL/L (98-107); CREATININE FOR GFR 0.59 MG/DL (0.70-1.30); GLOMERULAR FILTRATION RATE > 60.0 (>42); GLUCOSE, FASTING 107 MG/DL (74-106); SODIUM LEVEL 139 MMOL/L (136-145)
[2024-06-19 07:01] LABS: WHITE BLOOD COUNT 0.5 10^3/uL (4.0-10.0)
[2024-06-19 07:02] LABS: NEUTROPHILS # 0.2 10^3/uL (1.5-8.5); PLATELET COUNT, AUTOMATED 12 10^3/uL (150-450)
[2024-06-19] MEDS ORDERED: MIDODRINE 5 MG TAB PO SCH (08:00)
[2024-06-19] MEDS: atenoloL 25 MG TAB PO ONE (08:00)
[2024-06-19] MEDS: DIGOXIN INJ 0.5 MG/2 ML AMP IV ONE (08:19)
[2024-06-19] MEDS: DIGOXIN 0.125 MG TAB PO SCH (08:22)
[2024-06-19] MEDS: NS 500 ML IV ONE (08:23)
[2024-06-19] MEDS ORDERED: AMIODARONE 200 MG TAB (PACERONE) PO ONE (10:55)
[2024-06-19] MEDS ORDERED: AMIODARONE HCL 150 MG in IV 1 EA IV ONE (11:05)
[2024-06-19] MEDS: AMIODARONE HCL 150 MG in IV 1 EA IV ONE (11:53)
[2024-06-19] MEDS: AMIODARONE HCL 360 MG in IV 1 EA IV SCH (12:16)
[2024-06-19] MEDS: ACETAMINOPHEN 500 MG TAB PO ONE (12:24)
[2024-06-19 18:42] LABS: HEMATOCRIT 27.3 % (42.0-52.0)
[2024-06-19 18:47] LABS: HEMOGLOBIN 9.4 g/dl (13.5-17.5)
[2024-06-19] MEDS ORDERED: AMIODARONE 200 MG TAB (PACERONE) PO SCH (21:00)
[2024-06-20] VITALS (11 sets, daily range): BP systolic 101–136; BP diastolic 55–79; TEMP 96.9–97.9; O2SAT 96–99
[2024-06-20 06:11] LABS: HEMATOCRIT 23.6 % (42.0-52.0); HEMOGLOBIN 8.1 g/dl (13.5-17.5); LYMPH # 0.3 10^3/uL (1.5-5.0); LYMPH % 33.3 % (24.0-44.0); MEAN CORPUSCULAR HEMOGLOBIN 29.7 pg (27.0-33.0); MEAN CORPUSCULAR HGB CONC 34.3 g/dl (32.0-36.5); MEAN CORPUSCULAR VOLUME 86.4 fl (80.0-96.0); MONO # 0.1 10^3/uL (0.0-0.8); MONO % 5.7 % (2.0-8.0); NEUTROPHILS % 49.5 % (36.0-66.0); RED BLOOD COUNT 2.73 10^6/uL (4.30-6.10)
[2024-06-20 06:14] LABS: NEUTROPHILS # 0.4 10^3/uL (1.5-8.5); PLATELET COUNT, AUTOMATED 13 10^3/uL (150-450); WHITE BLOOD COUNT 0.9 10^3/uL (4.0-10.0)
[2024-06-20 06:43] LABS: BLOOD UREA NITROGEN 18 MG/DL (9-23); CALCIUM LEVEL 7.9 MG/DL (8.3-10.6); CARBON DIOXIDE LEVEL 28 MMOL/L (20-31); CHLORIDE LEVEL 104 MMOL/L (98-107); CREATININE FOR GFR 0.62 MG/DL (0.70-1.30); GLOMERULAR FILTRATION RATE > 60.0 (>42); GLUCOSE, FASTING 89 MG/DL (74-106); MAGNESIUM LEVEL 1.8 MG/DL (1.8-2.4); POTASSIUM SERUM 4.1 MMOL/L (3.5-5.1); SODIUM LEVEL 138 MMOL/L (136-145)
[2024-06-20] MEDS ORDERED: LevoFLOXacin 500 MG TABLET PO SCH (09:00)
[2024-06-20] MEDS: MAG SULF 1GM/100ML (MAG RUN) 1 GM in IV 1 EA IV SCH (09:49)
[2024-06-20] MEDS: atenoloL 25 MG TAB PO SCH (09:52)
[2024-06-20] MEDS: ACETAMINOPHEN 500 MG TAB PO PRN (10:56)
[2024-06-20] MEDS: FLUCONAZOLE 100 MG TAB PO SCH (11:59)
[2024-06-20] MEDS ORDERED: NYST-38 PO (13:13)
[2024-06-20] MEDS ORDERED: LIDO15SO8 SS (13:13)
[2024-06-20] MEDS ORDERED: ATEN50TA2 PO (13:13)
[2024-06-20] MEDS ORDERED: FLUC100T3 PO (13:13)
[2024-06-20] MEDS: LIDOCAINE VISCOUS 2% SOLN 15ML UDC SS SCH (17:41)
== END 2024-06-20 18:59 | disposition home or self-care (01) | DRG 368 ==
LOC: M ED 10:35 → M ED INP 11:03 → M MS5PR 13:00 → M MSPAV 06-14 01:00 → M ICU 06-15 08:18 → M PCU 06-15 10:18
PROVIDERS: ADMIT General Practice; ATTEND General Practice
PROC: 30233N1 Transfusion of Nonautologous Red Blood Cells into Peripheral Vein, Percutaneous Approach (ICD-10-PCS; principal; 2024-06-12)
PROC: 30233R1 Transfusion of Nonautologous Platelets into Peripheral Vein, Percutaneous Approach (ICD-10-PCS; 2024-06-12)
PROC: B246ZZZ Ultrasonography of Right and Left Heart (ICD-10-PCS; 2024-06-15)
DX: B37.81 Candidal esophagitis (principal); D61.810 Antineoplastic chemotherapy induced pancytopenia; J98.11 Atelectasis; I48.92 Unspecified atrial flutter; I47.10 Supraventricular tachycardia, unspecified; R04.2 Hemoptysis; G25.81 Restless legs syndrome; G62.9 Polyneuropathy, unspecified; D46.9 Myelodysplastic syndrome, unspecified; M51.26 Other intervertebral disc displacement, lumbar region; B37.0 Candidal stomatitis; J43.9 Emphysema, unspecified; I25.85 Chronic coronary microvascular dysfunction; G89.29 Other chronic pain; R63.0 Anorexia; R62.7 Adult failure to thrive; I95.9 Hypotension, unspecified; R13.12 Dysphagia, oropharyngeal phase; R00.1 Bradycardia, unspecified; Z79.4 Long term (current) use of insulin; Z79.2 Long term (current) use of antibiotics; Z79.52 Long term (current) use of systemic steroids; Z79.899 Other long term (current) drug therapy; Z87.891 Personal history of nicotine dependence; Z85.118 Personal history of other malignant neoplasm of bronchus and lung; Z92.3 Personal history of irradiation; Z92.21 Personal history of antineoplastic chemotherapy

== ENCOUNTER → 2024-06-27 | Outpatient (REF) | payer MEDICARE ==
[~2024-06-27] MED LIST changes: +ATEN50TA2 PO; +FLUC100T3 PO; +HUMU1INJ2 SC; +LIDO15SO8 SS; +MORP-69 PO; +NYST-38 PO; +NYST-38 SS; +OSEL75CA2 PO
[2024-06-27 12:00] LABS: BACTERIA, URINE AUTO NEGATIVE (NEGATIVE); MUCUS, URINE SMALL (NEGATIVE); RBC, URINE AUTO 0 /HPF (0-3); SQUAMOUS EPITHELIAL CELL UR AU 0 /HPF (0-6); WBC, URINE AUTO 1 /HPF (0-3)
== END ==
LOC: M LAB REF 10:18
PROVIDERS: ATTEND Internal Medicine
DX: R30.0 Dysuria (principal)

== ENCOUNTER → 2024-07-24 | Outpatient (REF) | payer MEDICARE | LOC: M SFHCRHEU 07:14 | PROVIDERS: ATTEND Internal Medicine Rheumatology | DX: Z53.20 Procedure and treatment not carried out because of patient's decision for unspecified reasons (principal) ==

== ENCOUNTER → 2024-07-29 | Outpatient (REF) | payer MEDICARE ==
[2024-07-29 13:12] LABS: COMPLEMENT C3 147.4 MG/DL (90.0-170.0); COMPLEMENT C4 27.1 MG/DL (12-36); LDH LACTATE DEHYDROGENASE 217 U/L (120-246)
[2024-07-29 13:13] LABS: ALBUMIN 3.3 G/DL (3.2-5.2); ALKALINE PHOSPHATASE 87 U/L (40-129); ALT/SGPT 14 U/L (7.0-40); AST/SGOT 21 U/L (<34); BILIRUBIN,TOTAL 0.5 MG/DL (0.3-1.2); BLOOD UREA NITROGEN 13 MG/DL (9-23); C REACTIVE PROTEIN QUANTITATIV 2.23 MG/DL (<1.0); CALCIUM LEVEL 8.3 MG/DL (8.3-10.6); CARBON DIOXIDE LEVEL 26 MMOL/L (20-31); CHLORIDE LEVEL 105 MMOL/L (98-107); CREATININE FOR GFR 0.65 MG/DL (0.70-1.30); GLOMERULAR FILTRATION RATE > 60.0 (>42); GLUCOSE, FASTING 85 MG/DL (74-106); POTASSIUM SERUM 4.3 MMOL/L (3.5-5.1); SODIUM LEVEL 140 MMOL/L (136-145); TOTAL PROTEIN 6.6 G/DL (5.7-8.2)
[2024-07-29 13:14] LABS: CPK CREATINE PHOSPHOKINASE 47 U/L (46-171)
[2024-07-29 13:46] LABS: APPEARANCE, URINE CLEAR (CLEAR); BACTERIA, URINE AUTO NEGATIVE (NEGATIVE); BILIRUBIN, URINE AUTO NEGATIVE (NEGATIVE); BLOOD, URINE BLOOD NEGATIVE (NEGATIVE); COLOR, URINE YELLOW (YELLOW); GLUCOSE, URINE (UA) AUTO NEGATIVE (NEGATIVE); KETONE, URINE AUTO NEGATIVE (NEGATIVE); LEUKOCYTE ESTERASE, URINE AUTO NEGATIVE (NEGATIVE); NITRITE, URINE AUTO NEGATIVE (NEGATIVE); PROTEIN, URINE AUTO NEGATIVE (NEGATIVE); RBC, URINE AUTO 0 /HPF (0-3); SPECIFIC GRAVITY URINE AUTO 1.014 (1.002-1.035); SQUAMOUS EPITHELIAL CELL UR AU 0 /HPF (0-6); UROBILINOGEN, URINE AUTO 0.2 mg/dL (0.0-2.0); WBC, URINE AUTO 1 /HPF (0-3)
[2024-07-29 14:51] LABS: TOTAL PROTEIN,RANDOM URINE 12.9 MG/DL (0.0-14.0)
[2024-07-29 14:56] LABS: CREATININE,RANDOM URINE 65.8 MG/DL
== END ==
LOC: M SFHCRHEU 08:28
PROVIDERS: ATTEND Internal Medicine Rheumatology
DX: R76.8 Other specified abnormal immunological findings in serum (principal); R10.2 Pelvic and perineal pain; R79.82 Elevated C-reactive protein (CRP)

== ENCOUNTER → 2024-07-30 | Outpatient (CLI) | payer MEDICARE ==
[~2024-07-30] MED LIST changes: +ISOVUE-370 76% 100ML VIAL As Ordered ONE
== END ==
LOC: M RAD 10:16
PROVIDERS: ATTEND Internal Medicine Medical Oncology
DX: C34.01 Malignant neoplasm of right main bronchus (principal); R91.8 Other nonspecific abnormal finding of lung field; R59.9 Enlarged lymph nodes, unspecified; J70.0 Acute pulmonary manifestations due to radiation
CPT/HCPCS: 71260; 74177; Q9967

== ENCOUNTER → 2024-08-25 | Outpatient (CLI) | payer MEDICARE ==
[~2024-08-25] MED LIST changes: -ISOVUE-370 76% 100ML VIAL As Ordered ONE
== END ==
LOC: M PLARAD 13:33
PROVIDERS: ATTEND Internal Medicine Medical Oncology
DX: C34.11 Malignant neoplasm of upper lobe, right bronchus or lung (principal)
CPT/HCPCS: 78815; A9552

== ENCOUNTER → 2024-08-26 | Outpatient (REF) | payer MEDICARE ==
[2024-08-26 08:52] LABS: ALBUMIN 3.6 G/DL (3.2-5.2); ALKALINE PHOSPHATASE 89 U/L (40-129); ALT/SGPT 20 U/L (7.0-40); AST/SGOT 22 U/L (<34); BILIRUBIN,TOTAL 0.5 MG/DL (0.3-1.2); BLOOD UREA NITROGEN 14 MG/DL (9-23); CALCIUM LEVEL 8.4 MG/DL (8.3-10.6); CARBON DIOXIDE LEVEL 25 MMOL/L (20-31); CHLORIDE LEVEL 106 MMOL/L (98-107); CREATININE FOR GFR 0.64 MG/DL (0.70-1.30); GLOMERULAR FILTRATION RATE > 60.0 (>42); POTASSIUM SERUM 4.5 MMOL/L (3.5-5.1); SODIUM LEVEL 138 MMOL/L (136-145); TOTAL PROTEIN 6.9 G/DL (5.7-8.2)
[2024-08-26 09:03] LABS: HEMOGLOBIN A1c 4.5 % (4.0-6.0)
[2024-08-27 06:50] LABS: GLUCOSE, FASTING 94 MG/DL (74-106)
== END ==
LOC: M LAB REF 07:57
PROVIDERS: ATTEND Internal Medicine
DX: E11.9 Type 2 diabetes mellitus without complications (principal)

== ENCOUNTER → 2024-09-18 | Outpatient (CLI) | payer MEDICARE | LOC: M ONCR 08:50 | PROVIDERS: ATTEND General Practice | DX: C34.31 Malignant neoplasm of lower lobe, right bronchus or lung (principal); R91.8 Other nonspecific abnormal finding of lung field; F17.218 Nicotine dependence, cigarettes, with other nicotine-induced disorders; Z92.21 Personal history of antineoplastic chemotherapy; Z92.3 Personal history of irradiation; Z92.29 Personal history of other drug therapy; Z79.891 Long term (current) use of opiate analgesic; Z79.4 Long term (current) use of insulin; Z79.51 Long term (current) use of inhaled steroids; Z79.899 Other long term (current) drug therapy ==

== ENCOUNTER 2024-10-06 07:50 | Outpatient (RCR) | payer MEDICARE ==
[~2024-10-06 07:50] MED LIST changes: -FLOM0.4C39 PO; +TAMS-18 PO
== END 2024-10-15 ==
LOC: M ONCR 07:50
PROVIDERS: ATTEND General Practice
DX: Z51.0 Encounter for antineoplastic radiation therapy (principal); C34.31 Malignant neoplasm of lower lobe, right bronchus or lung

== ENCOUNTER → 2024-12-17 | Outpatient (CLI) | payer MEDICARE ==
[~2024-12-17] MED LIST changes: +ACYC-438 PO; -ACYC1TAB PO; +ISOVUE-370 76% 100 ML VIAL ONE; +METO1TAB7 PO
== END ==
LOC: M PLAIMG 11:44
PROVIDERS: ATTEND Internal Medicine Medical Oncology
DX: C44.92 Squamous cell carcinoma of skin, unspecified (principal)
CPT/HCPCS: 71260; 74177; Q9967

== ENCOUNTER → 2025-01-23 | Outpatient (CLI) | payer MEDICARE ==
[~2025-01-23] MED LIST changes: -ISOVUE-370 76% 100 ML VIAL ONE
== END ==
LOC: M ONCR 10:11
PROVIDERS: ATTEND General Practice
DX: C34.31 Malignant neoplasm of lower lobe, right bronchus or lung (principal); R91.8 Other nonspecific abnormal finding of lung field; Z79.4 Long term (current) use of insulin; Z79.51 Long term (current) use of inhaled steroids; Z79.899 Other long term (current) drug therapy; Z79.891 Long term (current) use of opiate analgesic; Z92.21 Personal history of antineoplastic chemotherapy; Z92.29 Personal history of other drug therapy; Z92.3 Personal history of irradiation

== ENCOUNTER 2025-02-23 14:24 | Inpatient (IN) | payer MEDICARE ==
[~2025-02-23] VITALS: Ht 177.8 cm; Wt 73.9 kg
[2025-02-23] VITALS (8 sets, daily range): BP systolic 102–136; BP diastolic 55–66; TEMP 98–98.9; O2SAT 96–99
[~2025-02-23 14:24] MED LIST changes: -B-12100010 PO; -DILT1TAB12 PO; -METO1TAB32 PO; -PROBCAP2 PO; -THERTAB52 PO
[2025-02-23 15:16] LABS: BASO # 0.0 10^3/uL (0.0-0.2); BASO % 0.0 % (0.0-1.0); EOS # 0.0 10^3/uL (0.0-0.5); EOS % 9.4 % (0.0-3.0); LYMPH # 0.2 10^3/uL (1.5-5.0); LYMPH % 65.6 % (24.0-44.0); MONO # 0.0 10^3/uL (0.0-0.8); MONO % 3.1 % (2.0-8.0); NEUTROPHILS % 9.4 % (36.0-66.0)
[2025-02-23 15:24] LABS: NEUTROPHILS # 0.0 10^3/uL (1.5-8.5); PLATELET COUNT, AUTOMATED 7 10^3/uL (150-450)
[2025-02-23 15:25] LABS: INR 1.08
[2025-02-23 15:58] LABS: CK-MB VALUE MASS 3.0 NG/ML (<3.6)
[2025-02-23 15:59] LABS: CPK CREATINE PHOSPHOKINASE 66 U/L (46-171); MB/CK RELATIVE INDEX 4.54 (< OR =4)
[2025-02-23 16:00] LABS: ALT/SGPT 15 U/L (7.0-40); AST/SGOT 16 U/L (<34); CALCIUM LEVEL 8.1 MG/DL (8.3-10.6); CARBON DIOXIDE LEVEL 26 MMOL/L (20-31); CHLORIDE LEVEL 108 MMOL/L (98-107); CREATININE FOR GFR 0.83 MG/DL (0.70-1.30); GLOMERULAR FILTRATION RATE > 90.0 (>42); POTASSIUM SERUM 3.7 MMOL/L (3.5-5.1); SODIUM LEVEL 143 MMOL/L (136-145)
[2025-02-23] MEDS ORDERED: METO1TAB32 PO (16:30)
[2025-02-23] MEDS ORDERED: DILT1TAB12 PO (16:30)
[2025-02-23] MEDS ORDERED: THERTAB52 PO (16:40)
[2025-02-23] MEDS ORDERED: PROBCAP2 PO (16:40)
[2025-02-23] MEDS ORDERED: B-12100010 PO (16:40)
[2025-02-23] MEDS ORDERED: HOME MED LIST COMPLETE! XX SCH (16:45)
[2025-02-23] MEDS ORDERED: ISOVUE-370 76% 100 ML VIAL As Ordered ONE (17:53)
[2025-02-23] MEDS: ACYCLOVIR 200 MG CAPSULE PO SCH (21:00)
[2025-02-23] MEDS: rOPINIRole 0.25 MG TAB PO SCH (21:00)
[2025-02-23] MEDS: TAMSULOSIN 0.4 MG CAP PO SCH (21:00)
[2025-02-23] MEDS: GABAPENTIN 400 MG CAP PO SCH (21:00)
[2025-02-23] MEDS: dilTIAZem 30 MG TAB PO SCH (21:00)
[2025-02-24] VITALS (15 sets, daily range): BP systolic 94–118; BP diastolic 56–74; TEMP 97–98.4; O2SAT 94–97
[2025-02-24 02:06] LABS: PLATELET COUNT, AUTOMATED 34 10^3/uL (150-450)
[2025-02-24] MEDS: ACETAMINOPHEN 325 MG TAB PO ONE (05:16)
[2025-02-24] MEDS: SYMBICORT 160/4.5MCG INHALER 6GM INH SCH (07:37)
[2025-02-24] MEDS: TIOTROPIUM BROM 2.5MCG/ACTUATION 4GM INH INH SCH (07:37)
[2025-02-24] MEDS ORDERED: ALBUTEROL SULFATE 2.5 MG/0.5 ML INH CONCENTRATE NEB SOLN NEB PRN (08:00)
[2025-02-24] MEDS: METOPROLOL SUCC. 25 MG *XL* TAB PO SCH (09:00)
[2025-02-24] MEDS: FOLIC ACID 1 MG TAB PO SCH (09:53)
[2025-02-24] MEDS: CYANOCOBALAMIN 500 MCG TAB PO SCH (09:54)
[2025-02-24] MEDS: MULTIVITAMINS/MINERALS THERAP 1 TAB PO SCH (09:54)
[2025-02-24] MEDS: PANTOPRAZOLE 40MG VIAL IV SCH (09:54)
[2025-02-24] MEDS: FILGRASTIM 480 MCG/0.8 ML SYRINGE **SC ADMINISTRATION ONLY SC SCH (12:07)
[2025-02-24 14:49] LABS: BASO # 0.0 10^3/uL (0.0-0.2); BASO % 2.7 % (0.0-1.0); EOS # 0.0 10^3/uL (0.0-0.5); EOS % 8.1 % (0.0-3.0); LYMPH # 0.2 10^3/uL (1.5-5.0); LYMPH % 62.2 % (24.0-44.0); MONO # 0.0 10^3/uL (0.0-0.8); MONO % 2.7 % (2.0-8.0); NEUTROPHILS % 24.3 % (36.0-66.0)
[2025-02-24 14:53] LABS: NEUTROPHILS # 0.1 10^3/uL (1.5-8.5); PLATELET COUNT, AUTOMATED 43 10^3/uL (150-450)
[2025-02-24 15:18] LABS: CALCIUM LEVEL 8.2 MG/DL (8.3-10.6); CARBON DIOXIDE LEVEL 26 MMOL/L (20-31); CHLORIDE LEVEL 108 MMOL/L (98-107); CREATININE FOR GFR 0.78 MG/DL (0.70-1.30); GLOMERULAR FILTRATION RATE > 90.0 (>42); MAGNESIUM LEVEL 1.9 MG/DL (1.8-2.4); POTASSIUM SERUM 4.2 MMOL/L (3.5-5.1); SODIUM LEVEL 142 MMOL/L (136-145)
[2025-02-25 06:01] VITALS: BP 113/69; TEMP 98.2; O2SAT 94
[2025-02-25 07:37] LABS: PLATELET COUNT, AUTOMATED 40 10^3/uL (150-450)
[2025-02-25 07:48] LABS: ALT/SGPT 15 U/L (7.0-40); AST/SGOT 19 U/L (<34); CALCIUM LEVEL 8.3 MG/DL (8.3-10.6); CARBON DIOXIDE LEVEL 27 MMOL/L (20-31); CHLORIDE LEVEL 107 MMOL/L (98-107); CREATININE FOR GFR 0.80 MG/DL (0.70-1.30); GLOMERULAR FILTRATION RATE > 90.0 (>42); POTASSIUM SERUM 4.5 MMOL/L (3.5-5.1); SODIUM LEVEL 141 MMOL/L (136-145)
[2025-02-25 07:56] LABS: EOSINOPHILS 12 % (0-3); LYMPHOCYTES 62 % (16-44); MONOCYTES 3 % (0-5); NEUTROPHILS 23 % (28-66)
[2025-02-25 07:57] LABS: PLATELET ESTIMATE MARKED DECREASE (NORMAL)
[2025-02-25 09:00] VITALS: BP 105/67
[2025-02-25] MEDS: BACTRIM 160MG/800MG DS TAB PO SCH (09:37)
== END 2025-02-25 10:15 | disposition home or self-care (01) | DRG 809 ==
LOC: M ED 14:24 → M ED INP 20:32 → M MS5PR 02-24 00:30 → OBSVTOIN 02-24 08:10 → M MS5PR 02-24 09:57
PROVIDERS: ADMIT Student in an Organized Health Care Education/Training Program; ATTEND Internal Medicine
PROC: 30233N1 Transfusion of Nonautologous Red Blood Cells into Peripheral Vein, Percutaneous Approach (ICD-10-PCS; principal; 2025-02-24)
PROC: 30233R1 Transfusion of Nonautologous Platelets into Peripheral Vein, Percutaneous Approach (ICD-10-PCS; 2025-02-24)
DX: D61.818 Other pancytopenia (principal); R04.2 Hemoptysis; R91.8 Other nonspecific abnormal finding of lung field; D46.9 Myelodysplastic syndrome, unspecified; F17.210 Nicotine dependence, cigarettes, uncomplicated; G25.81 Restless legs syndrome; I48.91 Unspecified atrial fibrillation; D69.6 Thrombocytopenia, unspecified; J44.9 Chronic obstructive pulmonary disease, unspecified; N40.0 Benign prostatic hyperplasia without lower urinary tract symptoms; Z79.899 Other long term (current) drug therapy; Z85.118 Personal history of other malignant neoplasm of bronchus and lung; Z71.6 Tobacco abuse counseling; Z92.21 Personal history of antineoplastic chemotherapy; Z92.3 Personal history of irradiation

== ENCOUNTER → 2025-02-23 | Outpatient (CLI) | payer MEDICARE ==
[~2025-02-23] MED LIST changes: +B-12100010 PO; +DILT1TAB12 PO; +METO1TAB32 PO; +PROBCAP2 PO; +THERTAB52 PO
[2025-02-23 13:20] LABS: BASO # 0.0 10^3/uL (0.0-0.2); BASO % 0.0 % (0.0-1.0); EOS # 0.0 10^3/uL (0.0-0.5); EOS % 10.0 % (0.0-3.0); LYMPH # 0.3 10^3/uL (1.5-5.0); LYMPH % 62.5 % (24.0-44.0); MONO # 0.0 10^3/uL (0.0-0.8); MONO % 2.5 % (2.0-8.0); NEUTROPHILS % 22.5 % (36.0-66.0)
[2025-02-23 13:24] LABS: NEUTROPHILS # 0.1 10^3/uL (1.5-8.5); PLATELET COUNT, AUTOMATED 8 10^3/uL (150-450)
[2025-02-23 13:52] LABS: ALT/SGPT 15 U/L (7.0-40); AST/SGOT 16 U/L (<34); CALCIUM LEVEL 8.6 MG/DL (8.3-10.6); CARBON DIOXIDE LEVEL 26 MMOL/L (20-31); CHLORIDE LEVEL 108 MMOL/L (98-107); CREATININE FOR GFR 0.81 MG/DL (0.70-1.30); GLOMERULAR FILTRATION RATE > 90.0 (>42); POTASSIUM SERUM 4.3 MMOL/L (3.5-5.1); SODIUM LEVEL 144 MMOL/L (136-145)
== END ==
LOC: M WUC 09:24
PROVIDERS: ATTEND Internal Medicine
DX: I48.92 Unspecified atrial flutter (principal)

== ENCOUNTER 2025-02-28 15:54 | Inpatient (IN) | payer MEDICARE ==
[~2025-02-28] VITALS: Ht 177.8 cm; Wt 75.0 kg
[2025-02-28] VITALS (8 sets, daily range): BP systolic 117–156; BP diastolic 62–95; TEMP 97.1–100.1; O2SAT 92–98
[~2025-02-28 15:54] MED LIST changes: +B-12100010 PO; +DILT1TAB12 PO; +METO1TAB32 PO; +PROBCAP2 PO; +THERTAB52 PO
[2025-02-28 16:53] LABS: BASO # 0.0 10^3/uL (0.0-0.2); BASO % 0.0 % (0.0-1.0); EOS # 0.0 10^3/uL (0.0-0.5); EOS % 3.1 % (0.0-3.0); LYMPH # 0.3 10^3/uL (1.5-5.0); LYMPH % 84.4 % (24.0-44.0); MONO # 0.0 10^3/uL (0.0-0.8); MONO % 6.3 % (2.0-8.0); NEUTROPHILS % 6.2 % (36.0-66.0)
[2025-02-28 16:55] LABS: NEUTROPHILS # 0.0 10^3/uL (1.5-8.5)
[2025-02-28 16:56] LABS: PLATELET COUNT, AUTOMATED 16 10^3/uL (150-450)
[2025-02-28 17:11] LABS: INR 1.04
[2025-02-28 17:19] LABS: ALT/SGPT 19 U/L (7.0-40); AST/SGOT 22 U/L (<34); CALCIUM LEVEL 8.4 MG/DL (8.3-10.6); CARBON DIOXIDE LEVEL 27 MMOL/L (20-31); CHLORIDE LEVEL 104 MMOL/L (98-107); CREATININE FOR GFR 0.85 MG/DL (0.70-1.30); GLOMERULAR FILTRATION RATE > 90.0 (>42); POTASSIUM SERUM 4.1 MMOL/L (3.5-5.1); SODIUM LEVEL 140 MMOL/L (136-145)
[2025-02-28] MEDS ORDERED: ACETAMINOPHEN 500 MG TAB As Ordered ONE (17:47)
[2025-02-28] MEDS: ACETAMINOPHEN 500 MG TAB PO ONE (17:49)
[2025-02-28] MEDS ORDERED: MAALOX 30 ML SUSP *UDC PO PRN (18:00)
[2025-02-28] MEDS ORDERED: MOM 30 ML SUSPENSION UDC PO PRN (18:00)
[2025-02-28] MEDS: FILGRASTIM 300 MCG/0.5 ML SYRINGE **SC ADMINISTRATION ONLY SC ONE (18:07)
[2025-02-28] MEDS: TRANEXAMIC ACID 100 MG/ML 10ML VIAL NEB ONE (18:19)
[2025-02-28] MEDS ORDERED: HOME MED LIST COMPLETE! XX SCH (18:25)
[2025-02-28] MEDS: MEROPENEM 1 GM in IV 1 EA IV ONE (18:27)
[2025-02-28 18:44] LABS: KETONE, URINE AUTO RFX NEGATIVE (NEGATIVE); LEUKOCYTE ESTERASE UR AUTO RFX NEGATIVE (NEGATIVE); MUCUS, URINE RFX SMALL (NEGATIVE); NITRITE, URINE AUTO RFX NEGATIVE (NEGATIVE); RBC, URINE AUTO RFX 5 /HPF (0-3); SQUAM EPITHELIAL CELL UR AURFX 0 /HPF (0-6); WBC, URINE AUTO RFX 0 /HPF (0-3)
[2025-02-28] MEDS: BENZONATATE 100 MG CAPSULE PO ONE (19:24)
[2025-02-28] MEDS: VANCOMYCIN HCL 1,500 MG, VIAL MATE ADAPTER 1 EACH in NS 500 ML IV ONE (19:25)
[2025-02-28] MEDS: CEFEPIME HCL 2 GM in DEXTROSE 5% (D5W) ADV/MINI-BAG 50 ML IV SCH (22:33)
[2025-03-01] VITALS (10 sets, daily range): BP systolic 104–139; BP diastolic 56–81; TEMP 97.9–101.2; O2SAT 92–96
[2025-03-01] MEDS: TRANEXAMIC ACID 100 MG/ML 10ML VIAL NEB SCH
[2025-03-01] MEDS: ACETAMINOPHEN 325 MG TAB PO PRN (01:19)
[2025-03-01 02:39] LABS: BASO # 0.0 10^3/uL (0.0-0.2); BASO % 0.0 % (0.0-1.0); EOS # 0.0 10^3/uL (0.0-0.5); EOS % 3.8 % (0.0-3.0); LYMPH # 0.2 10^3/uL (1.5-5.0); LYMPH % 84.6 % (24.0-44.0); MONO # 0.0 10^3/uL (0.0-0.8); MONO % 3.8 % (2.0-8.0); NEUTROPHILS % 0.0 % (36.0-66.0)
[2025-03-01 02:55] LABS: APPEARANCE, URINE CLEAR (CLEAR); BACTERIA, URINE AUTO NEGATIVE (NEGATIVE); BILIRUBIN, URINE AUTO NEGATIVE (NEGATIVE); BLOOD, URINE BLOOD 1+ (NEGATIVE); GLUCOSE, URINE (UA) AUTO NEGATIVE (NEGATIVE); KETONE, URINE AUTO NEGATIVE (NEGATIVE); LEUKOCYTE ESTERASE, URINE AUTO NEGATIVE (NEGATIVE); MUCUS, URINE SMALL (NEGATIVE); NITRITE, URINE AUTO NEGATIVE (NEGATIVE); PROTEIN, URINE AUTO NEGATIVE (NEGATIVE); RBC, URINE AUTO 7 /HPF (0-3); SPECIFIC GRAVITY URINE AUTO 1.013 (1.002-1.035); SQUAMOUS EPITHELIAL CELL UR AU 0 /HPF (0-6); UROBILINOGEN, URINE AUTO 0.2 mg/dL (0.0-2.0); WBC, URINE AUTO 0 /HPF (0-3)
[2025-03-01 03:01] LABS: NEUTROPHILS # 0.0 10^3/uL (1.5-8.5); PLATELET COUNT, AUTOMATED 38 10^3/uL (150-450)
[2025-03-01 03:02] LABS: LDH LACTATE DEHYDROGENASE 139 U/L (120-246)
[2025-03-01 03:17] LABS: ALT/SGPT 19 U/L (7.0-40); AST/SGOT 20 U/L (<34); CALCIUM LEVEL 7.5 MG/DL (8.3-10.6); CARBON DIOXIDE LEVEL 26 MMOL/L (20-31); CHLORIDE LEVEL 107 MMOL/L (98-107); CREATININE FOR GFR 0.85 MG/DL (0.70-1.30); GLOMERULAR FILTRATION RATE > 90.0 (>42); POTASSIUM SERUM 4.2 MMOL/L (3.5-5.1); SODIUM LEVEL 143 MMOL/L (136-145)
[2025-03-01] MEDS: BENZONATATE 100 MG CAPSULE PO SCH (05:55)
[2025-03-01 07:07] LABS: BASO # 0.0 10^3/uL (0.0-0.2); BASO % 0.0 % (0.0-1.0); EOS # 0.0 10^3/uL (0.0-0.5); EOS % 3.7 % (0.0-3.0); LYMPH # 0.2 10^3/uL (1.5-5.0); LYMPH % 85.2 % (24.0-44.0); MONO # 0.0 10^3/uL (0.0-0.8); MONO % 3.7 % (2.0-8.0); NEUTROPHILS % 7.4 % (36.0-66.0)
[2025-03-01 07:10] LABS: NEUTROPHILS # 0.0 10^3/uL (1.5-8.5); PLATELET COUNT, AUTOMATED 40 10^3/uL (150-450)
[2025-03-01 07:38] LABS: CARBON DIOXIDE LEVEL 27 MMOL/L (20-31); CHLORIDE LEVEL 106 MMOL/L (98-107); CREATININE FOR GFR 0.84 MG/DL (0.70-1.30); GLOMERULAR FILTRATION RATE > 90.0 (>42); MAGNESIUM LEVEL 1.9 MG/DL (1.8-2.4); POTASSIUM SERUM 4.4 MMOL/L (3.5-5.1); SODIUM LEVEL 141 MMOL/L (136-145)
[2025-03-01] MEDS: VANCOMYCIN HCL 1,000 MG, VIAL MATE ADAPTER 1 EACH in NS 250 ML IV SCH (08:18)
[2025-03-01] MEDS: FILGRASTIM 480 MCG/0.8 ML SYRINGE **SC ADMINISTRATION ONLY SC SCH (08:18)
[2025-03-01 09:47] LABS: CALCIUM LEVEL 7.8 MG/DL (8.3-10.6)
[2025-03-01] MEDS: NYSTATIN 500,000 UNITS/5 ML SUSP UDC SS SCH (11:14)
[2025-03-01] MEDS: rOPINIRole 0.25 MG TAB PO SCH (11:14)
[2025-03-01] MEDS: ACYCLOVIR 200 MG CAPSULE PO SCH (11:14)
[2025-03-01] MEDS: dilTIAZem 30 MG TAB PO SCH (11:16)
[2025-03-01] MEDS: GABAPENTIN 400 MG CAP PO SCH (11:16)
[2025-03-01] MEDS: FLUCONAZOLE 100 MG TAB PO SCH (11:17)
[2025-03-01] MEDS: FOLIC ACID 1 MG TAB PO SCH (11:17)
[2025-03-01] MEDS: MAGIC MOUTHWASH 5 ML ORAL SYRINGE SSP ONE (12:19)
[2025-03-01] MEDS: MAGIC MOUTHWASH 5 ML ORAL SYRINGE SSP SCH (18:18)
[2025-03-01] MEDS: RAMELTEON 8 MG TAB PO SCH (20:55)
[2025-03-01] MEDS: TAMSULOSIN 0.4 MG CAP PO SCH (20:56)
[2025-03-01] MEDS: METOPROLOL SUCC. 25 MG *XL* TAB PO SCH (21:00)
[2025-03-02] VITALS (7 sets, daily range): BP systolic 98–116; BP diastolic 53–67; TEMP 97.3–98.4; O2SAT 94–96
[2025-03-02 05:49] LABS: BASO # 0.0 10^3/uL (0.0-0.2); BASO % 2.9 % (0.0-1.0); EOS # 0.0 10^3/uL (0.0-0.5); EOS % 2.9 % (0.0-3.0); LYMPH # 0.3 10^3/uL (1.5-5.0); LYMPH % 82.9 % (24.0-44.0); MONO # 0.0 10^3/uL (0.0-0.8); MONO % 2.9 % (2.0-8.0); NEUTROPHILS % 8.4 % (36.0-66.0)
[2025-03-02 05:55] LABS: NEUTROPHILS # 0.0 10^3/uL (1.5-8.5); PLATELET COUNT, AUTOMATED 31 10^3/uL (150-450)
[2025-03-02 06:18] LABS: CALCIUM LEVEL 7.7 MG/DL (8.3-10.6); CARBON DIOXIDE LEVEL 26 MMOL/L (20-31); CHLORIDE LEVEL 108 MMOL/L (98-107); CREATININE FOR GFR 0.89 MG/DL (0.70-1.30); GLOMERULAR FILTRATION RATE > 90.0 (>42); MAGNESIUM LEVEL 1.9 MG/DL (1.8-2.4); POTASSIUM SERUM 4.3 MMOL/L (3.5-5.1); SODIUM LEVEL 139 MMOL/L (136-145)
[2025-03-02] MEDS: ALBUTEROL SULFATE 2.5 MG/0.5 ML INH CONCENTRATE NEB SOLN NEB PRN (07:58)
[2025-03-02] MEDS: FLUCONAZOLE 100 MG TAB PO SCH (09:14)
[2025-03-02 10:07] LABS: VANCOMYCIN RANDOM 11.5 UG/ML
[2025-03-02] MEDS ORDERED: ALPRAZolam 0.25 MG TAB PO PRN (11:00)
[2025-03-03] VITALS (12 sets, daily range): BP systolic 90–125; BP diastolic 55–73; TEMP 97–98.5; O2SAT 95–98
[2025-03-03 07:43] LABS: BASO # 0.0 10^3/uL (0.0-0.2); BASO % 0.0 % (0.0-1.0); EOS # 0.0 10^3/uL (0.0-0.5); EOS % 3.2 % (0.0-3.0); LYMPH # 0.2 10^3/uL (1.5-5.0); LYMPH % 77.4 % (24.0-44.0); MONO # 0.0 10^3/uL (0.0-0.8); MONO % 3.2 % (2.0-8.0); NEUTROPHILS % 13.0 % (36.0-66.0)
[2025-03-03 07:51] LABS: NEUTROPHILS # 0.0 10^3/uL (1.5-8.5)
[2025-03-03 07:52] LABS: PLATELET COUNT, AUTOMATED 29 10^3/uL (150-450)
[2025-03-03 08:08] LABS: CALCIUM LEVEL 8.0 MG/DL (8.3-10.6); CARBON DIOXIDE LEVEL 28 MMOL/L (20-31); CHLORIDE LEVEL 106 MMOL/L (98-107); CREATININE FOR GFR 0.77 MG/DL (0.70-1.30); GLOMERULAR FILTRATION RATE > 90.0 (>42); MAGNESIUM LEVEL 1.8 MG/DL (1.8-2.4); POTASSIUM SERUM 4.3 MMOL/L (3.5-5.1); SODIUM LEVEL 139 MMOL/L (136-145)
[2025-03-03] MEDS: TIOTROPIUM BROM 2.5MCG/ACTUATION 4GM INH INH SCH (18:00)
[2025-03-04 02:18] LABS: URINE STREP PNEUMONIAE ANTIGEN Not Detected (Not Detected)
[2025-03-04 03:10] VITALS: BP 128/72; TEMP 97.9; O2SAT 94
[2025-03-04 05:43] LABS: BASO # 0.0 10^3/uL (0.0-0.2); BASO % 2.3 % (0.0-1.0); EOS # 0.0 10^3/uL (0.0-0.5); EOS % 4.5 % (0.0-3.0); LYMPH # 0.3 10^3/uL (1.5-5.0); LYMPH % 59.1 % (24.0-44.0); MONO # 0.0 10^3/uL (0.0-0.8); MONO % 6.8 % (2.0-8.0); NEUTROPHILS % 27.3 % (36.0-66.0)
[2025-03-04 05:46] LABS: NEUTROPHILS # 0.1 10^3/uL (1.5-8.5); PLATELET COUNT, AUTOMATED 37 10^3/uL (150-450)
[2025-03-04 06:07] LABS: CALCIUM LEVEL 8.0 MG/DL (8.3-10.6); CARBON DIOXIDE LEVEL 28 MMOL/L (20-31); CHLORIDE LEVEL 106 MMOL/L (98-107); CREATININE FOR GFR 0.74 MG/DL (0.70-1.30); GLOMERULAR FILTRATION RATE > 90.0 (>42); MAGNESIUM LEVEL 1.7 MG/DL (1.8-2.4); POTASSIUM SERUM 4.5 MMOL/L (3.5-5.1); SODIUM LEVEL 138 MMOL/L (136-145)
[2025-03-04 08:00] VITALS: BP 107/66; TEMP 97.6; O2SAT 96
[2025-03-04] MEDS: BACTRIM 160MG/800MG DS TAB PO SCH (08:42)
[2025-03-04] MEDS: MAGNESIUM OXIDE 400 MG TAB PO SCH (08:42)
[2025-03-04 08:44] VITALS: BP 107/66
[2025-03-04] MEDS ORDERED: LEVO75TAB PO (09:55)
[2025-03-04] MEDS ORDERED: MAGN400T33 PO (09:55)
[2025-03-04] MEDS ORDERED: NYST-38 SS (09:55)
[2025-03-04] MEDS ORDERED: MAGICMW SSP (09:55)
[2025-03-05 22:11] LABS: MYCOPLASMA PNEUMONIAE IGG 1.25 (<=0.90); MYCOPLASMA PNEUMONIAE IGM 106.0 U/mL (<770)
== END 2025-03-04 12:17 | disposition home or self-care (01) | DRG 809 ==
LOC: M ED 15:54 → M ED INP 17:58 → M PCU 20:55
PROVIDERS: ADMIT Student in an Organized Health Care Education/Training Program; ATTEND Student in an Organized Health Care Education/Training Program
PROC: 30233R1 Transfusion of Nonautologous Platelets into Peripheral Vein, Percutaneous Approach (ICD-10-PCS; 2025-02-28)
PROC: 30233N1 Transfusion of Nonautologous Red Blood Cells into Peripheral Vein, Percutaneous Approach (ICD-10-PCS; principal; 2025-03-03)
DX: D70.8 Other neutropenia (principal); R04.2 Hemoptysis; C34.31 Malignant neoplasm of lower lobe, right bronchus or lung; B37.81 Candidal esophagitis; D84.9 Immunodeficiency, unspecified; D46.9 Myelodysplastic syndrome, unspecified; F17.200 Nicotine dependence, unspecified, uncomplicated; D69.6 Thrombocytopenia, unspecified; G25.81 Restless legs syndrome; I48.91 Unspecified atrial fibrillation; R91.8 Other nonspecific abnormal finding of lung field; D61.810 Antineoplastic chemotherapy induced pancytopenia; N40.0 Benign prostatic hyperplasia without lower urinary tract symptoms; Z79.51 Long term (current) use of inhaled steroids; Z79.899 Other long term (current) drug therapy; I95.9 Hypotension, unspecified; J44.9 Chronic obstructive pulmonary disease, unspecified; Z92.21 Personal history of antineoplastic chemotherapy

== ENCOUNTER → 2025-03-30 | Outpatient (CLI) | payer MEDICARE ==
[~2025-03-30] MED LIST changes: +LEVO75TAB PO; +MAGN400T33 PO; +NOXA1TAB PO
== END ==
LOC: M PLARAD 11:07
PROVIDERS: ATTEND Internal Medicine Medical Oncology
DX: C34.11 Malignant neoplasm of upper lobe, right bronchus or lung (principal)
CPT/HCPCS: 78815; A9552